=== PATIENT | female | born 1960 | race Caucasian/White ===

== ENCOUNTER → 2019-03-03 15:42 | Outpatient (BNVA) | payer MEDICARE, MEDICAID, SELFPAY | PROVIDERS: Visit Provider Anesthesiology | DX: M54.9 Dorsalgia, unspecified (principal); F17.210 Nicotine dependence, cigarettes, uncomplicated | CPT/HCPCS: 99213; 99214 ==

== ENCOUNTER → 2019-04-26 14:48 | Outpatient (BNVA) | payer MEDICARE, MEDICAID, SELFPAY | PROVIDERS: PCP Nurse Practitioner Family; Visit Provider Anesthesiology | DX: M54.5 Low back pain (principal); M79.604 Pain in right leg; M79.605 Pain in left leg; M48.02 Spinal stenosis, cervical region; M47.812 Spondylosis without myelopathy or radiculopathy, cervical region; E11.40 Type 2 diabetes mellitus with diabetic neuropathy, unspecified; R51 Headache; F17.210 Nicotine dependence, cigarettes, uncomplicated; Z79.891 Long term (current) use of opiate analgesic | CPT/HCPCS: 99214 ==

== ENCOUNTER 2019-06-01 07:18 | Outpatient (CLI) | payer MEDICARE, MEDICAID, SELFPAY ==
--- NOTE | 2019-06-01 | US_ITS ---
WS: [id number] RENAL ULTRASOUND REASON FOR EXAM: CKD TECHNIQUE: Grayscale and Doppler ultrasound examination of the kidneys. FINDINGS: Right kidney: Right kidney measures 12.4 cm x 5.7 cm x 4.9 cm. Cortex measured 1.76 cm. In the inferior pole of the right kidney is a stone measures 0.54 x 0.50 cm. An additional stone is a lso seen in the mid right kidney. Stone measures 0.43 cm. Left kidney: Left kidney measures 11.7 cm x 5.5 cm x 6.5 cm. The left kidney shows a hypodense lesion measures 2.16 x 1.81 x 1.68 cm consistent with a simple cyst. An additional cyst measures 1.64 x 1.3 4 x 1.54 cm. A text measured 1.58 cm. The aorta was normal. US/US renal BI* [id number] IMPRESSION: 1. 2 echogenic foci suggesting stones are seen in the right kidney. 2. 2 cysts are seen in the left kidney these appear to be benign.
--- NOTE | 2019-06-01 07:24 | USCV_ITS ---
Alaina Cano Age: 58 Gender: F : 1960 Exam Date: 06/01/2019 07:58 Ordering Phys: Diane Sylvester MD Technologist: Jessica Mccain Exam Location: [facility] – [place] Indication: Aneurysm HISTORY: History of. Abdominal aortic aneurysm. Diameter (cm) AP x Transverse x Length Velocity (cm/s) Waveform Prox Aorta: 2.24 x 2.57 x 48.90 Mid Aorta: 1.74 x 1.81 x 69.80 Distal Aorta: 3.45 x 3.41 x 4.75 74.60 Right Iliac Prox: 0.95 x x 186.80 Left Iliac Prox: 1.43 x x 63.60 Stent Prox Landing x x Aneurysmal Sac Max x x Lt Lat Sac Dim Rt Lat Sac Dim Stent Dist Landing x x Right Iliac Stent x x Left Iliac Stent x x Right Renal Art Left Renal Art FINDINGS: Comparison: 09-18-16. A fusiform abdominal aortic aneurysm is noted with a maximal diameter of 3.5 cm. Aneurysm extends over a length of 4.8 cm No interval change. Atherosclerotic plaque is noted in the abdominal aorta. Mild atherosclerosis iliac arteries. CONCLUSIONS No change in the AAA, maximum diameter of 3.[address] Светлана Berg DO (Electronically Signed) Final Date: 01 June 2019 10:05 S
== END 2019-06-01 07:19 | disposition home or self-care (01) ==
LOC: RAD 07:22
PROVIDERS: PCP Nurse Practitioner Family; Visit Provider Internal Medicine
DX: I71.4 Abdominal aortic aneurysm, without rupture (principal); N18.9 Chronic kidney disease, unspecified; N28.1 Cyst of kidney, acquired
CPT/HCPCS: 76706; 76770

== ENCOUNTER → 2019-06-29 12:31 | Outpatient (BNVA) | payer MEDICARE, MEDICAID, SELFPAY | PROVIDERS: PCP Nurse Practitioner Family; Visit Provider Nurse Practitioner | DX: M54.5 Low back pain (principal); M48.02 Spinal stenosis, cervical region; E11.40 Type 2 diabetes mellitus with diabetic neuropathy, unspecified; F17.210 Nicotine dependence, cigarettes, uncomplicated; Z79.891 Long term (current) use of opiate analgesic | CPT/HCPCS: 99213; 99214 ==

== ENCOUNTER → 2019-09-08 09:41 | Outpatient (BNVA) | payer MEDICARE, MEDICAID, SELFPAY | PROVIDERS: PCP Nurse Practitioner Family; Visit Provider Nurse Practitioner | DX: M54.41 Lumbago with sciatica, right side (principal); M54.42 Lumbago with sciatica, left side; M48.02 Spinal stenosis, cervical region; E11.40 Type 2 diabetes mellitus with diabetic neuropathy, unspecified; F17.210 Nicotine dependence, cigarettes, uncomplicated; Z79.891 Long term (current) use of opiate analgesic | CPT/HCPCS: 99213; 99214 ==

== ENCOUNTER 2019-09-26 12:46 | Outpatient (CLI) | payer MEDICARE, MEDICAID, SELFPAY ==
--- NOTE | 2019-09-26 13:33 | PFTS_ITS ---
Date of Study:09/26/19 Date of Dictation: MECHANICS: Forced vital capacity (FVC) is reduced. Forced expiratory volume in one second (FEV1) is reduced. FEV1/FVC is normal. FLOW VOLUME LOOP: Narrow. LUNG VOLUMES: Not performed DIFFUSING CAPACITY FOR CARBON MONOXIDE: Not performed INTERPRETATION: Spirometry is consistent with mild restriction. No significant postbronchodilator response. A significant improvement in FEF 25-75% following bronchodilator was noted, this could be suggestive of small airways disease, however, a nonspecific finding. MTDD
== END 2019-09-26 12:47 | disposition home or self-care (01) ==
LOC: RT 12:48
PROVIDERS: PCP Nurse Practitioner Family; Visit Provider Internal Medicine
DX: J44.9 Chronic obstructive pulmonary disease, unspecified (principal)
CPT/HCPCS: 94060; J7611

== ENCOUNTER 2019-09-26 13:50 | Outpatient (CLI) | payer MEDICARE, MEDICAID, SELFPAY ==
--- NOTE | 2019-09-26 13:51 | MM_ITS ---
WS: [id number] BILATERAL DIGITAL SCREENING MAMMOGRAPHY WITH CAD CLINICAL INFORMATION: SCREENING HISTORY: Screening mammogram. No current complaints. COMPARISON: April 05, 2015 TECHNIQUE: Bilateral CC and MLO views. FINDINGS: The breasts are composed of heterogeneous fibroglandular density tissue, which can limit the detectio n of small underlying mass lesions. No suspicious mass, asymmetry, calcifications, or architectural d istortion. No evidence of malignancy. MM/[place] [id number] IMPRESSION: BI-RADS: 2-Benign FOLLOW UP: 1 Year Follow-up Recommend return to annual screening mammography.
--- NOTE | 2019-09-26 14:22 | XR_ITS ---
WS: [id number] DEXA (DUAL ENERGY X-RAY ABSORPTIOMETRY) Bone mineral density was performed using a [employer] machine. HISTORY: STATUS, ASYMPTOMATIC POSTMENOPAUSAL COMPARISON: None available. Lumbar spine BMD (L1-L4): 1.210 g/cm2 T score: 0.3 Z score: 0.8 Total hip BMD: Left: 1.307 g/cm2. T score: 2.4 Z score: 2.8 Right: 1.312 g/cm2. T score: 2.4 Z score: 2.9 10 year probability of a major osteoporotic fracture is 5%. XR/XR DEXA axial skeleton* [id number] IMPRESSION: NORMAL BONE MINERAL DENSITY based upon the WHO classification for females.
== END 2019-09-26 13:51 | disposition home or self-care (01) ==
LOC: RADSHAW 13:50
PROVIDERS: PCP Nurse Practitioner Family; Visit Provider Internal Medicine
DX: Z12.31 Encounter for screening mammogram for malignant neoplasm of breast (principal); Z78.0 Asymptomatic menopausal state
CPT/HCPCS: 77067; 77080

== ENCOUNTER → 2019-11-08 13:41 | Outpatient (BNVA) | payer MEDICARE, MEDICAID, SELFPAY | PROVIDERS: PCP Nurse Practitioner Family; Visit Provider Nurse Practitioner | DX: M54.42 Lumbago with sciatica, left side (principal); M54.41 Lumbago with sciatica, right side; M48.02 Spinal stenosis, cervical region; E11.40 Type 2 diabetes mellitus with diabetic neuropathy, unspecified; G25.81 Restless legs syndrome; F17.210 Nicotine dependence, cigarettes, uncomplicated; Z79.891 Long term (current) use of opiate analgesic | CPT/HCPCS: 99213 ==

== ENCOUNTER → 2020-01-04 12:50 | Outpatient (BNVA) | payer MEDICARE, MEDICAID, SELFPAY | PROVIDERS: PCP Nurse Practitioner Family; Visit Provider Anesthesiology | DX: M54.5 Low back pain (principal); M48.02 Spinal stenosis, cervical region; M47.812 Spondylosis without myelopathy or radiculopathy, cervical region; G25.81 Restless legs syndrome; F17.210 Nicotine dependence, cigarettes, uncomplicated; Z79.891 Long term (current) use of opiate analgesic; Z71.6 Tobacco abuse counseling | CPT/HCPCS: 99214 ==

== ENCOUNTER 2020-01-05 12:56 | Outpatient (CLI) | payer MEDICARE, MEDICAID, SELFPAY ==
--- NOTE | 2020-01-05 13:08 | XR_ITS ---
WS: [id number] RIGHT WRIST: 3 VIEW(S) TECHNIQUE: PA, oblique and lateral. HISTORY: WRIST PAIN, RIGHT ulnar NEUROPATHY AT WRIST COMPARISON: None available. No acute fracture. There is a very small osseous or calcific density adjacent to the distal medial ulna. This is along t he dorsal surface of the distal ulna. No joint space abnormality. There is a small amount of adjacent soft tissue edema. XR/XR wrist RT min 3V* [id number] IMPRESSION: Tiny calcific or osseous density adjacent to the distal ulna with associated so ft tissue edema.
== END 2020-01-05 12:57 | disposition home or self-care (01) ==
LOC: RAD 13:01
PROVIDERS: PCP Nurse Practitioner Family; Visit Provider Nurse Practitioner Family
DX: M25.531 Pain in right wrist (principal); G56.21 Lesion of ulnar nerve, right upper limb; R60.0 Localized edema
CPT/HCPCS: 73110

== ENCOUNTER → 2020-02-13 08:57 | Outpatient (BNVA) | payer MEDICARE, MEDICAID, SELFPAY | PROVIDERS: PCP Nurse Practitioner Family; Referring Provider Nurse Practitioner Family; Visit Provider Specialist | DX: R20.0 Anesthesia of skin; F17.210 Nicotine dependence, cigarettes, uncomplicated; G56.21 Lesion of ulnar nerve, right upper limb; R20.2 Paresthesia of skin; M25.531 Pain in right wrist | CPT/HCPCS: 95908 ==

== ENCOUNTER → 2020-03-08 10:15 | Outpatient (BNVA) | payer MEDICARE, MEDICAID, SELFPAY | PROVIDERS: PCP Nurse Practitioner Family; Visit Provider Nurse Practitioner | DX: M54.5 Low back pain (principal); M48.02 Spinal stenosis, cervical region; M47.812 Spondylosis without myelopathy or radiculopathy, cervical region; E11.40 Type 2 diabetes mellitus with diabetic neuropathy, unspecified; G25.81 Restless legs syndrome; F17.210 Nicotine dependence, cigarettes, uncomplicated; Z79.891 Long term (current) use of opiate analgesic; Z71.6 Tobacco abuse counseling | CPT/HCPCS: 99214 ==

== ENCOUNTER → 2020-03-19 11:32 | Outpatient (BNVA) | payer MEDICARE, MEDICAID, SELFPAY | PROVIDERS: PCP Nurse Practitioner Family; Visit Provider Specialist | DX: R20.0 Anesthesia of skin (principal); M48.02 Spinal stenosis, cervical region; F17.210 Nicotine dependence, cigarettes, uncomplicated | CPT/HCPCS: 95908 ==

== ENCOUNTER 2020-04-05 12:46 | Outpatient (CLI) | payer MEDICARE, MEDICAID, SELFPAY ==
--- NOTE | 2020-04-05 12:57 | XR_ITS ---
WS: [id number] CERVICAL SPINE TECHNIQUE: 3 views of the cervical spine CLINICAL INFORMATION: CERVICALGIA COMPARISON: None. FINDINGS: Straightening of the normal cervical lordosis. Normal C1-C2 articulation. Slight anterolisthesis C3 o n C4 measuring 3 mm. Normal C1-2 articulation. XR/XR cervical spine 3V* [id number] IMPRESSION: 1. Straightening of the normal cervical lordosis with slight anterolisthesis C 3 on C4. 2. Mild spondylitic changes.
== END 2020-04-05 12:47 | disposition home or self-care (01) ==
LOC: RADWPI 12:51
PROVIDERS: PCP Nurse Practitioner Family; Visit Provider Nurse Practitioner Family
DX: M54.2 Cervicalgia (principal)
CPT/HCPCS: 72040

== ENCOUNTER → 2020-04-30 08:18 | Outpatient (BNVA) | payer MEDICARE, MEDICAID, SELFPAY | PROVIDERS: PCP Nurse Practitioner Family; Referring Provider Family Medicine; Visit Provider Internal Medicine | DX: E03.9 Hypothyroidism, unspecified (principal); E11.65 Type 2 diabetes mellitus with hyperglycemia; E78.1 Pure hyperglyceridemia | CPT/HCPCS: 99205 ==

== ENCOUNTER → 2020-05-09 10:36 | Outpatient (BNVA) | payer MEDICARE, MEDICAID, SELFPAY | PROVIDERS: PCP Nurse Practitioner Family; Visit Provider Anesthesiology | DX: G89.29 Other chronic pain (principal); M54.5 Low back pain; M48.02 Spinal stenosis, cervical region; M47.812 Spondylosis without myelopathy or radiculopathy, cervical region; G25.81 Restless legs syndrome; F17.210 Nicotine dependence, cigarettes, uncomplicated; Z79.891 Long term (current) use of opiate analgesic | CPT/HCPCS: 99214 ==

== ENCOUNTER → 2020-05-28 09:58 | Outpatient (BNVA) | payer MEDICARE, MEDICAID, SELFPAY | PROVIDERS: PCP Nurse Practitioner Family; Visit Provider Internal Medicine | DX: E03.9 Hypothyroidism, unspecified (principal); E11.65 Type 2 diabetes mellitus with hyperglycemia; E78.1 Pure hyperglyceridemia; E78.5 Hyperlipidemia, unspecified | CPT/HCPCS: 99213 ==

== ENCOUNTER → 2020-07-05 13:24 | Outpatient (BNVA) | payer MEDICARE, MEDICAID, SELFPAY | PROVIDERS: PCP Nurse Practitioner Family; Visit Provider Nurse Practitioner | DX: M54.5 Low back pain (principal); M48.02 Spinal stenosis, cervical region; M47.812 Spondylosis without myelopathy or radiculopathy, cervical region; G25.81 Restless legs syndrome; E11.40 Type 2 diabetes mellitus with diabetic neuropathy, unspecified; R20.0 Anesthesia of skin; F17.210 Nicotine dependence, cigarettes, uncomplicated; Z79.891 Long term (current) use of opiate analgesic; Z71.6 Tobacco abuse counseling | CPT/HCPCS: 99213; 99214 ==

== ENCOUNTER → 2020-09-12 12:45 | Outpatient (BNVA) | payer MEDICARE, MEDICAID, SELFPAY | PROVIDERS: PCP Nurse Practitioner Family; Visit Provider Anesthesiology | DX: G89.29 Other chronic pain (principal); M54.41 Lumbago with sciatica, right side; M54.42 Lumbago with sciatica, left side; M47.812 Spondylosis without myelopathy or radiculopathy, cervical region; M48.02 Spinal stenosis, cervical region; G25.81 Restless legs syndrome; E11.40 Type 2 diabetes mellitus with diabetic neuropathy, unspecified; F17.210 Nicotine dependence, cigarettes, uncomplicated; Z79.891 Long term (current) use of opiate analgesic; Z71.6 Tobacco abuse counseling | CPT/HCPCS: 99214 ==

== ENCOUNTER → 2020-09-17 11:54 | Outpatient (BNVA) | payer MEDICARE, MEDICAID, SELFPAY | PROVIDERS: PCP Nurse Practitioner Family; Referring Provider Nurse Practitioner Family; Visit Provider Specialist | DX: E11.40 Type 2 diabetes mellitus with diabetic neuropathy, unspecified (principal); Z79.4 Long term (current) use of insulin; G95.9 Disease of spinal cord, unspecified; M54.12 Radiculopathy, cervical region; M51.9 Unspecified thoracic, thoracolumbar and lumbosacral intervertebral disc disorder; F17.210 Nicotine dependence, cigarettes, uncomplicated | CPT/HCPCS: 99204 ==

== ENCOUNTER 2020-10-04 15:05 | Outpatient (CLI) | payer MEDICARE, MEDICAID, SELFPAY ==
--- NOTE | 2020-10-04 15:09 | US_ITS ---
WS: [id number] RENAL ULTRASOUND HISTORY: STAGE 3 CHRONIC KIDNEY DZ COMPARISON: 06/01/2019 TECHNIQUE: 2-D and color Doppler imaging of the kidney submitted. Right kidney: 12.5 cm x 6.5 cm x 5.6 cm. Normal echogenicity with no hydronephrosis or mass. Left kidney: 11.8 cm x 5.1 cm x 5.6 cm. Normal echogenicity with no hydronephrosis or mass. LEFT renal cyst described on the prior study is n o longer identified. Aorta: Mild aneurysmal dilatation to 3.6 cm of the aorta. Similar diameter as compared to 12/09/2015. Urinary Bladder: Normal distention. US/US renal BI* [id number] IMPRESSION: 1. No renal obstruction or mass. 2. Previously described LEFT renal cyst is not identified today. 3. Stable abdominal aortic aneurysm at 3.6 cm.
== END 2020-10-04 15:06 | disposition home or self-care (01) ==
LOC: US 15:07
PROVIDERS: PCP Nurse Practitioner Family; Visit Provider Internal Medicine Nephrology
DX: N18.32 Chronic kidney disease, stage 3b (principal); I71.4 Abdominal aortic aneurysm, without rupture
CPT/HCPCS: 76770

== ENCOUNTER → 2020-11-07 12:18 | Outpatient (BNVA) | payer MEDICARE, MEDICAID, SELFPAY | PROVIDERS: PCP Nurse Practitioner Family; Visit Provider Specialist | DX: E11.40 Type 2 diabetes mellitus with diabetic neuropathy, unspecified (principal); Z79.4 Long term (current) use of insulin; G95.9 Disease of spinal cord, unspecified; M54.12 Radiculopathy, cervical region; M51.9 Unspecified thoracic, thoracolumbar and lumbosacral intervertebral disc disorder; F17.210 Nicotine dependence, cigarettes, uncomplicated | CPT/HCPCS: 99214 ==

== ENCOUNTER → 2020-11-12 09:18 | Outpatient (BNVA) | payer MEDICARE, MEDICAID, SELFPAY | PROVIDERS: PCP Nurse Practitioner Family; Visit Provider Anesthesiology | DX: G89.29 Other chronic pain (principal); M54.5 Low back pain; M48.02 Spinal stenosis, cervical region; M47.812 Spondylosis without myelopathy or radiculopathy, cervical region; M54.12 Radiculopathy, cervical region; E11.40 Type 2 diabetes mellitus with diabetic neuropathy, unspecified; G25.81 Restless legs syndrome; G95.9 Disease of spinal cord, unspecified; F17.210 Nicotine dependence, cigarettes, uncomplicated; Z79.891 Long term (current) use of opiate analgesic | CPT/HCPCS: 99214 ==

== ENCOUNTER → 2021-01-07 13:20 | Outpatient (BNVA) | payer MEDICARE, MEDICAID, SELFPAY | PROVIDERS: PCP Nurse Practitioner Family; Visit Provider Anesthesiology | DX: G89.29 Other chronic pain (principal); M48.02 Spinal stenosis, cervical region; M54.12 Radiculopathy, cervical region; M47.812 Spondylosis without myelopathy or radiculopathy, cervical region; G95.9 Disease of spinal cord, unspecified; M51.9 Unspecified thoracic, thoracolumbar and lumbosacral intervertebral disc disorder; E11.40 Type 2 diabetes mellitus with diabetic neuropathy, unspecified; G25.81 Restless legs syndrome; F17.210 Nicotine dependence, cigarettes, uncomplicated; Z79.891 Long term (current) use of opiate analgesic | CPT/HCPCS: 99214 ==

== ENCOUNTER → 2021-02-23 11:55 | Outpatient (BNVA) | payer MEDICARE, MEDICAID, SELFPAY | PROVIDERS: PCP Nurse Practitioner Family; Visit Provider Family Medicine | DX: M79.672 Pain in left foot (principal) | CPT/HCPCS: 73630 ==

== ENCOUNTER → 2021-03-04 08:50 | Outpatient (BNVA) | payer MEDICARE, MEDICAID, SELFPAY | PROVIDERS: PCP Nurse Practitioner Family; Visit Provider Internal Medicine | DX: E11.65 Type 2 diabetes mellitus with hyperglycemia (principal); E78.5 Hyperlipidemia, unspecified; E78.1 Pure hyperglyceridemia; E03.9 Hypothyroidism, unspecified; F17.210 Nicotine dependence, cigarettes, uncomplicated; Z79.4 Long term (current) use of insulin; Z79.84 Long term (current) use of oral hypoglycemic drugs | CPT/HCPCS: 99214 ==

== ENCOUNTER → 2021-03-25 09:10 | Outpatient (BNVA) | payer MEDICARE, MEDICAID, SELFPAY | PROVIDERS: PCP Family Medicine; Visit Provider Anesthesiology | DX: M47.812 Spondylosis without myelopathy or radiculopathy, cervical region (principal); M48.02 Spinal stenosis, cervical region; M54.12 Radiculopathy, cervical region; M51.9 Unspecified thoracic, thoracolumbar and lumbosacral intervertebral disc disorder; G95.9 Disease of spinal cord, unspecified; E11.40 Type 2 diabetes mellitus with diabetic neuropathy, unspecified; M79.672 Pain in left foot; F17.200 Nicotine dependence, unspecified, uncomplicated; Z79.891 Long term (current) use of opiate analgesic; Z79.4 Long term (current) use of insulin | CPT/HCPCS: 99214 ==

== ENCOUNTER → 2021-04-17 14:04 | Outpatient (BNVA) | payer MEDICAID, SELFPAY | PROVIDERS: PCP Family Medicine; Referring Provider Family Medicine; Visit Provider Podiatrist Foot & Ankle Surgery | DX: M79.672 Pain in left foot (principal); M77.32 Calcaneal spur, left foot | CPT/HCPCS: 73630 ==

== ENCOUNTER 2021-06-06 08:04 | Outpatient (CLI) | payer MEDICARE, MEDICAID, SELFPAY ==
--- NOTE | 2021-06-06 08:51 | US_ITS ---
WS: [id number] ULTRASOUND ABDOMEN LIMITED CLINICAL INFORMATION: ABD PAIN COMPARISON: Ultrasound October 04, 2020 FINDINGS: Liver Size: Hepatomegaly Craniocaudal length: 23.2 cm. Echogenicity: Coarse and echogenic Surface nodularity: None. Mass (size and location): None. Bile ducts Intrahepatic ducts: Normal. Common bile duct diameter: 0.5 cm. Gallbladder Normal. Gallstones: None. Gallbladder sludge: None. Gallbladder wall thickening: None. Pericholecystic fluid: None. Sonographic Cook sign: Absent. Pancreas Not well seen due to bowel gas Right kidney: Normal. Hydronephrosis: None. Size: 12.9 cm x 7.2 cm x 5.7 cm. Abdominal aorta and IVC Mid abdominal aortic aneurysm measuring 3.4 x 3.6 x 5.6 cm AP X transverse x CC. Ascites: None. US/US gall bladder [id number] IMPRESSION: 1. Hepatomegaly with diffuse fatty infiltration. 2. Normal gallbladder. No cholelithiasis. 3. No hydronephrosis in RIGHT kidney. 4. Pancreas not well visualized due to bowel gas. 5. Normal common bile duct. 6. Mid abdominal aortic aneurysm measuring 3.4 x 3.6 x 5.6 cm AP x transverse x CC. Recommend further evaluation CTA abdomen pelvis. This [place] [facility] [place] the ultrasound October 04, 2020.
== END 2021-06-06 08:05 | disposition home or self-care (01) ==
PROVIDERS: PCP Family Medicine; Visit Provider Nurse Practitioner Family
DX: R10.13 Epigastric pain (principal); R11.10 Vomiting, unspecified; R16.0 Hepatomegaly, not elsewhere classified; K76.0 Fatty (change of) liver, not elsewhere classified; I71.4 Abdominal aortic aneurysm, without rupture
CPT/HCPCS: 76705

== ENCOUNTER → 2021-06-13 08:14 | Outpatient (BNVA) | payer MEDICARE, MEDICAID, SELFPAY | PROVIDERS: PCP Family Medicine; Visit Provider Internal Medicine | DX: E11.40 Type 2 diabetes mellitus with diabetic neuropathy, unspecified (principal); E11.65 Type 2 diabetes mellitus with hyperglycemia; E78.1 Pure hyperglyceridemia; E78.5 Hyperlipidemia, unspecified; R11.0 Nausea; E03.9 Hypothyroidism, unspecified; F17.210 Nicotine dependence, cigarettes, uncomplicated; Z79.4 Long term (current) use of insulin; Z79.84 Long term (current) use of oral hypoglycemic drugs | CPT/HCPCS: 99214 ==

== ENCOUNTER 2021-07-03 09:21 | Outpatient (CLI) | payer MEDICARE, MEDICAID, SELFPAY ==
--- NOTE | 2021-07-03 09:33 | CT_ITS ---
WS: [id number] CT ANGIOGRAPHY ABDOMEN AORTA HISTORY: AAA W/O RUPTURE TECHNIQUE: CT angiogram is performed during IV injection. Reformation images reviewed. All CT scans a [facility] use at least one of these dose optimization techniques: automated exposure contro l; mA and/or kV adjustment per patient size (includes targeted exams where dose is matched to clinica l indication); or iterative reconstruction. CONTRAST: Omnipaque 350; 95 mL IV. DLP: 933.78 mGy.cm COMPARISON: 12/09/2015 Hyperinflated lungs from emphysema. Stable linear scar at the RIGHT middle lobe. Mild dependent walsh es at the lung bases. Heart is normal size. Small hiatal hernia. Abdominal aorta: Moderate atherosclerotic changes throughout the abdominal aorta. Progressive aneurys mal dilatation to 4.2 cm of the infrarenal aorta. Aneurysm extends over a length of 5.5 cm. There is a large amount of intraluminal thrombus. The amount of thrombus in the aneurysmal dilatation has incr eased since the prior study. The lumen is eccentric to the RIGHT. Focal protrusions of contrast from ulcerations extend into the thrombus. There is no rupture. Celiac axis and SMA are both patent. There is plaque at the origins of both arteries. Mild atherosclerotic plaque involving the origin of the r enal arteries. Iliac arteries are patent. There is mixed calcified plaque and intimal thickening. Liver is markedly enlarged with diffuse low attenuation from hepatic steatosis. On this early arteria l phase no enhancing lesions are identified. Gallbladder is contracted. Spleen is normal size. Pancre as is normal. Mild hyperplasia of each adrenal gland. Slightly greater lobulation and enlargement of the LEFT adrenal. Normally enhancing kidneys. Low-attenuation nodule from the upper pole LEFT kidney measures 15 x 16 m m. This has slightly increased in size since the prior study. Hounsfield units are low suggesting thi s is a cyst. No ascites or adenopathy. No GI tract obstruction. Numerous diverticula in the distal co fay. The appendix is not definitely identified. Moderately well distended urinary bladder. Uterus is not identified. No adnexal mass. No destructive bone lesions. CT/CT angio abdomen [id number] IMPRESSION: 1. Mild increase in size of the infrarenal abdominal aortic aneurysm with a ma ximal diameter now of 4.2 cm. Increasing amount of thrombus and eccentric paten t lumen. 2. Severe hepatomegaly and hepatic steatosis. 3. Mildly contracted gallbladder. 4. No ascites or adenopathy. 5. Mild adrenal hyperplasia, LEFT greater than RIGHT. 6. LEFT upper pole renal cyst. 7. Moderate atherosclerotic changes continue into the iliac arteries.
[2021-07-03] MEDS: iohexol 350 mg/mL 100 mL Btl IV (09:51)
== END 2021-07-03 09:22 | disposition home or self-care (01) ==
LOC: RAD 09:24
PROVIDERS: PCP Family Medicine; Visit Provider Nurse Practitioner Family
DX: I71.4 Abdominal aortic aneurysm, without rupture (principal); R16.0 Hepatomegaly, not elsewhere classified; K76.0 Fatty (change of) liver, not elsewhere classified; E27.8 Other specified disorders of adrenal gland; N28.1 Cyst of kidney, acquired
CPT/HCPCS: 74175

== ENCOUNTER → 2021-07-10 10:54 | Outpatient (BNVA) | payer MEDICARE, MEDICAID, SELFPAY | PROVIDERS: PCP Family Medicine; Visit Provider Thoracic Surgery (Cardiothoracic Vascular Surgery) | DX: I71.4 Abdominal aortic aneurysm, without rupture (principal); F17.210 Nicotine dependence, cigarettes, uncomplicated | CPT/HCPCS: 99203 ==

== ENCOUNTER 2021-08-28 10:16 | Outpatient (CLI) | payer MEDICARE, MEDICAID, SELFPAY ==
--- NOTE | 2021-08-28 10:36 | MM_ITS ---
WS: [id number] BILATERAL 3D TOMOSYNTHESIS DIGITAL SCREENING MAMMOGRAPHY WITH CAD CLINICAL INFORMATION: SCREENING HISTORY: Screening mammogram. No current complaints. COMPARISON: September 26, 2019 and 2015. TECHNIQUE: Bilateral CC and MLO views. FINDINGS: Scattered fibroglandular densities bilaterally. Increasing lobulated ovoid nodule subareolar LEFT sadie ast measuring 10 mm. Recommend spot compression views and ultrasound in further evaluation. RIGHT breast is unremarkable and unchanged. MM/[place] [id number] IMPRESSION: BI-RADS: 0-Incomplete: Need additional imaging evaluation FOLLOW UP: Need Additional Imaging Recommend LEFT breast diagnostic mammography with spot compression views and ul trasound.
== END 2021-08-28 10:17 | disposition home or self-care (01) ==
LOC: RADSHAW 10:18
PROVIDERS: PCP Family Medicine; Visit Provider Family Medicine
DX: Z12.31 Encounter for screening mammogram for malignant neoplasm of breast (principal); N63.42 Unspecified lump in left breast, subareolar
CPT/HCPCS: 77063; 77067

== ENCOUNTER → 2021-09-16 08:58 | Outpatient (BNVA) | payer MEDICARE, MEDICAID, SELFPAY | PROVIDERS: PCP Family Medicine; Visit Provider Internal Medicine | DX: E11.65 Type 2 diabetes mellitus with hyperglycemia (principal); E11.40 Type 2 diabetes mellitus with diabetic neuropathy, unspecified; E78.1 Pure hyperglyceridemia; E03.9 Hypothyroidism, unspecified; E78.5 Hyperlipidemia, unspecified; K76.0 Fatty (change of) liver, not elsewhere classified; Z79.84 Long term (current) use of oral hypoglycemic drugs; Z79.4 Long term (current) use of insulin; F17.210 Nicotine dependence, cigarettes, uncomplicated | CPT/HCPCS: 80053; 80061; 83036; 83721; 84439; 84443; 99214 ==

== ENCOUNTER → 2021-09-25 13:01 | Outpatient (BNVA) | payer MEDICARE, MEDICAID, SELFPAY | PROVIDERS: PCP Family Medicine; Visit Provider Podiatrist Foot & Ankle Surgery | DX: M79.672 Pain in left foot (principal); M21.40 Flat foot [pes planus] (acquired), unspecified foot; M21.621 Bunionette of right foot; M21.622 Bunionette of left foot; M21.611 Bunion of right foot; M21.612 Bunion of left foot; E11.40 Type 2 diabetes mellitus with diabetic neuropathy, unspecified | CPT/HCPCS: 99213; 99214 ==

== ENCOUNTER 2021-10-07 08:34 | Outpatient (CLI) | payer MEDICARE, MEDICAID, SELFPAY ==
--- NOTE | 2021-10-07 08:44 | MM_ITS ---
WS: [id number] LEFT 3D TOMOSYNTHESIS DIGITAL MAMMOGRAPHY WITH CAD CLINICAL INFORMATION: LT ABNORMAL MAMMOGRAM COMPARISON: October 07, 2021 TECHNIQUE: 3 views of the left breast were obtained. FINDINGS: Scattered fibroglandular densities of the left breast. Stable ovoid nodule subareolar LEFT breast preston suring 10 mm. Ultrasound described below. ULTRASOUND BREAST LEFT TECHNIQUE: Ultrasound left breast focused area of concern. CLINICAL INFORMATION: LT ABNORMAL MAMMOGRAM COMPARISON: None. FINDINGS: Ultrasound LEFT breast at the nipple. Several dilated ducts are visualized consistent with ductal ect breezy. No intraductal lesions. Adjacent lobulated cluster of microcysts measuring 11 x 11 x 5 mm likel y corresponds to the mammography findings at the 3:00 position.. Recommend 6 month follow-up to confi rm stability. MM/MM tomosynthesis [place] [id number] IMPRESSION: BI-RADS: 3-Probably Benign FOLLOW UP: 6 Month Follow-up Recommend 6 month follow-up LEFT diagnostic mammography and ultrasound to confi rm stability.
== END 2021-10-07 08:35 | disposition home or self-care (01) ==
PROVIDERS: PCP Family Medicine; Visit Provider Family Medicine
DX: R92.8 Other abnormal and inconclusive findings on diagnostic imaging of breast (principal)
CPT/HCPCS: 76642; 77061

== ENCOUNTER 2021-11-20 08:55 | Outpatient (CLI) | payer MEDICARE, MEDICAID, SELFPAY ==
[2021-11-20 10:14] LABS: Basophils # 0.2 10^3/uL (0.0-0.1); Basophils % 1.2 %; Eosinophils # 0.5 10^3/uL (0.0-0.8); Eosinophils % 3.9 %; Hemoglobin 12.9 g/dL (11.5-15.3); Lymphocytes # 2.2 10^3/uL (0.8-4.8); Mean Corpuscular Hemoglobin 25.1 pg (28.0-34.0); Mean Corpuscular Volume 83.8 fl (81-99); Mean Platelet Volume 10.2 fL (7.4-10.4); Monocytes # 1.1 10^3/uL (0.2-0.9); Monocytes % 7.9 %; Neutrophils # 9.68 10^3/uL (1.8-7.7); Nucleated Red Blood Cells % 0 %; Platelet Count 537 10^3/cmm (130-400); Red Blood Count 5.13 10^6/uL (4.1-5.3); Red Cell Distribution Width 16.6 % (12.1-15.1)
[2021-11-20 10:48] LABS: Albumin Level 4.3 g/dL (3.5-5.2); Blood Urea Nitrogen 19 mg/dL (8-23); Calcium 8.3 mg/dL (8.5-10.5); Carbon Dioxide 20 mmol/L (22-29); Chloride 101 mmol/L (98-107); Glomerular Filtration Rate 63.9 mL/min (90-130); Glucose 294 mg/dL (65-115); Phosphorus 3.8 mg/dL (2.5-4.5); Sodium 138 mmol/L (136-145)
[2021-11-20 10:49] LABS: Calcium 8.8 mg/dL (8.5-10.5)
[2021-11-20 10:50] LABS: Parathyroid Hormone 51.8 pg/mL (15-65)
== END 2021-11-20 08:56 | disposition home or self-care (01) ==
LOC: LAB 09:02
PROVIDERS: PCP Family Medicine; Visit Provider Internal Medicine Nephrology
DX: N18.32 Chronic kidney disease, stage 3b (principal)
CPT/HCPCS: 36415; 80069; 82310; 83970; 85025

== ENCOUNTER → 2021-12-23 15:42 | Outpatient (BNVA) | payer MEDICARE, MEDICAID, SELFPAY | PROVIDERS: PCP Family Medicine; Visit Provider Podiatrist Foot & Ankle Surgery | DX: M21.42 Flat foot [pes planus] (acquired), left foot (principal); M21.621 Bunionette of right foot; M21.622 Bunionette of left foot; M21.611 Bunion of right foot; M21.612 Bunion of left foot; E11.40 Type 2 diabetes mellitus with diabetic neuropathy, unspecified | CPT/HCPCS: 20600; 99214; J1100 ==

== ENCOUNTER 2022-02-10 07:03 | Outpatient (CLI) | payer MEDICARE, MEDICAID, SELFPAY ==
--- NOTE | 2022-02-10 07:15 | USCV_ITS ---
Alaina Cano Age: 61 Gender: F : 1960 Exam Date: 02/10/2022 07:14 Ordering Phys: Dominguez Jo MD (Andy) ([email or web address]) Technologist: Vasu Mcginnis Exam Location: [facility] [place]ication: AAA HISTORY: Diameter (cm) AP x Transverse x Length Velocity (cm/s) Waveform Prox Aorta: 2.74 x 2.95 x 46.20 Mid Aorta: 2.03 x 2.36 x 53.70 Distal Aorta: 3.72 x 4.02 x 5.64 95.90 Right Iliac Prox: 1.53 x 1.09 x 97.50 Left Iliac Prox: 0.99 x 0.97 x 201.00 Stent Prox Landing x x Aneurysmal Sac Max x x Lt Lat Sac Dim Rt Lat Sac Dim Stent Dist Landing x x Right Iliac Stent x x Left Iliac Stent x x Right Renal Art Left Renal Art FINDINGS: Comparison:. 06/01/19 A fusiform abdominal aortic aneurysm is noted with a maximal diameter of 4.0 cm. Increase in size since the prior exam from 3.5 cm. There are no findings to suggest rupture of the abdominal aortic aneurysm. Atherosclerotic plaque is noted in the abdominal aorta. There is evidence of atherosclerotic plaque no significan stenosis in the right common iliac artery. There is evidence of atherosclerotic plaque no significan stenosis in the left common iliac artery. CONCLUSIONS Mild increase in size of the AAA since 2019. Increase in diameter from 3.5 cm to 4.[address] Светлана Berg DO (Electronically Signed) Final Date: 10 February 2022 08:04 S
== END 2022-02-10 07:04 | disposition home or self-care (01) ==
PROVIDERS: PCP Family Medicine; Visit Provider Thoracic Surgery (Cardiothoracic Vascular Surgery)
DX: I71.40 Abdominal aortic aneurysm, without rupture, unspecified (principal)
CPT/HCPCS: 93978

== ENCOUNTER 2022-02-12 09:15 | Outpatient (CLI) | payer MEDICARE, MEDICAID, SELFPAY ==
[2022-02-12 10:19] LABS: Estmated Average Glucose 229; Hemoglobin A1C 9.6 % (4.0-6.0)
[2022-02-12 10:47] LABS: Chol HDL Ratio 8.44 mg/dL (0.0-4.40); Cholesterol 152 mg/dL (0-200); Free T4 Free Thyroxine 1.11 ng/dL (0.82-1.77); HDL Cholesterol 18 mg/dL (60-100); Thyroid Stimulating Hormone 3.56 uIU/mL (0.27-4.20); Triglycerides 602 mg/dL (0-150)
[2022-02-12 10:59] LABS: LDL Cholesterol Direct 57 mg/dL (0-100)
== END 2022-02-12 09:16 | disposition home or self-care (01) ==
LOC: LAB 09:18
PROVIDERS: PCP Family Medicine; Visit Provider Internal Medicine
DX: E03.9 Hypothyroidism, unspecified (principal); E11.65 Type 2 diabetes mellitus with hyperglycemia; E78.1 Pure hyperglyceridemia; E78.5 Hyperlipidemia, unspecified
CPT/HCPCS: 80061; 83036; 83721; 84439; 84443

== ENCOUNTER → 2022-02-17 11:01 | Outpatient (BNVA) | payer MEDICARE, MEDICAID, SELFPAY | PROVIDERS: PCP Family Medicine; Visit Provider Internal Medicine | DX: E11.65 Type 2 diabetes mellitus with hyperglycemia (principal); E11.42 Type 2 diabetes mellitus with diabetic polyneuropathy; E11.40 Type 2 diabetes mellitus with diabetic neuropathy, unspecified; E78.1 Pure hyperglyceridemia; K76.0 Fatty (change of) liver, not elsewhere classified; Z79.4 Long term (current) use of insulin; F17.210 Nicotine dependence, cigarettes, uncomplicated | CPT/HCPCS: 99214 ==

== ENCOUNTER → 2022-03-05 14:48 | Outpatient (BNVA) | payer MEDICARE, MEDICAID, SELFPAY | PROVIDERS: PCP Family Medicine; Visit Provider Thoracic Surgery (Cardiothoracic Vascular Surgery) | DX: I71.40 Abdominal aortic aneurysm, without rupture, unspecified (principal); F17.210 Nicotine dependence, cigarettes, uncomplicated | CPT/HCPCS: 99213 ==

== ENCOUNTER → 2022-03-12 09:51 | Outpatient (BNVA) | payer MEDICARE, MEDICAID, SELFPAY | PROVIDERS: PCP Family Medicine; Visit Provider Family Medicine | DX: R93.7 Abnormal findings on diagnostic imaging of other parts of musculoskeletal system (principal); R11.0 Nausea; Z11.4 Encounter for screening for human immunodeficiency virus [HIV]; Z12.2 Encounter for screening for malignant neoplasm of respiratory organs; Z71.6 Tobacco abuse counseling; Z78.0 Asymptomatic menopausal state; Z11.59 Encounter for screening for other viral diseases; Z13.820 Encounter for screening for osteoporosis; F17.219 Nicotine dependence, cigarettes, with unspecified nicotine-induced disorders | CPT/HCPCS: 80074; 87806 ==

== ENCOUNTER → 2022-03-31 13:11 | Outpatient (BNVA) | payer MEDICARE, MEDICAID, SELFPAY | PROVIDERS: PCP Family Medicine; Visit Provider Podiatrist Foot & Ankle Surgery | DX: M21.621 Bunionette of right foot (principal); M21.622 Bunionette of left foot; M21.40 Flat foot [pes planus] (acquired), unspecified foot; M21.611 Bunion of right foot; M21.612 Bunion of left foot; E11.40 Type 2 diabetes mellitus with diabetic neuropathy, unspecified; M19.079 Primary osteoarthritis, unspecified ankle and foot; Z79.4 Long term (current) use of insulin | CPT/HCPCS: 99214 ==

== ENCOUNTER 2022-04-23 07:04 | Outpatient (CLI) | payer MEDICARE, MEDICAID, SELFPAY ==
--- NOTE | 2022-04-23 07:00 | CT_ITS ---
WS: [id number] LDCT LUNG CANCER SCREENING HISTORY: lung cancer screening TECHNIQUE: Axial imaging performed from the apices to 1 cm below the costophrenic angles. Coronal and sagittal reformats are submitted with axial MIP series. All CT scans at [facility] use at least one of these dose optimization techniques: automated exposure control; mA and/or kV adjustment per patient size (includes targeted exams where dose is matched to clinical indication); or iterativ e reconstruction. DLP: 77.67 mGy.cm DIvol: Mean CTDIvol: 1.60 (mGy) COMPARISON: 01/08/2016 Diagnostic quality: Satisfactory Lung Nodules: New LEFT upper lobe noncalcified 5 mm nodule noted. No additional masses or nodules are identified. Lungs: Paraseptal emphysema. Reticular thickening noted bilaterally. There is pleural thickening philip g the fissures. Linear area of scarring in the RIGHT middle lobe. Heart: Normal size. Other findings: Mild atherosclerosis aorta. Pulmonary artery is dilated to 3.8 cm. A few scattered co ronary artery calcifications. Small hiatal hernia. CT/CT lung screening [id number] IMPRESSION: LUNG-RADS: 3-Probably Benign FOLLOW UP: 6 Month LDCT OTHER FINDINGS (S MODIFIER): None.
== END 2022-04-23 07:05 | disposition home or self-care (01) ==
LOC: RAD 07:05
PROVIDERS: PCP Family Medicine; Visit Provider Family Medicine
DX: Z12.2 Encounter for screening for malignant neoplasm of respiratory organs (principal); F17.219 Nicotine dependence, cigarettes, with unspecified nicotine-induced disorders
CPT/HCPCS: 71271

== ENCOUNTER 2022-05-07 10:01 | Outpatient (CLI) | payer MEDICARE, MEDICAID, SELFPAY ==
--- NOTE | 2022-05-07 10:07 | MM_ITS ---
WS: [id number] LEFT 3D TOMOSYNTHESIS DIGITAL MAMMOGRAPHY WITH CAD CLINICAL INFORMATION: 6MFU HISTORY: Six-month follow-up COMPARISON: 2021 TECHNIQUE: 3 views of the left breast were obtained. FINDINGS: Scattered fibroglandular densities of the left breast. Stable 10 mm ovoid nodule subareolar LEFT luanne st. No new parenchymal abnormalities. Ultrasound described below. ULTRASOUND BREAST LEFT TECHNIQUE: Ultrasound left breast focused area of concern. CLINICAL INFORMATION: 6MFU FINDINGS: Ultrasound LEFT breast near the areola at the 3:00 position. Hypoechoic lobulated lesion with interna l septations is again visualized. This appears to represent a cluster of microcysts similar in appea rimma to the prior examination. Today this measures 8.2 x 12.9 x 5.3 mm not significantly changed. St able prominent ducts posterior to the nipple. No intraductal lesions in this area. Recommend addition al six-month follow-up to confirm at least one-year stability. MM/[place] [id number] IMPRESSION: BI-RADS: 3-Probably Benign FOLLOW UP: 6 Month Follow-up Recommendation LEFT breast diagnostic mammography and ultrasound in 6 months.
== END 2022-05-07 10:02 | disposition home or self-care (01) ==
LOC: RAD 10:01
PROVIDERS: PCP Family Medicine; Visit Provider Family Medicine
DX: R92.8 Other abnormal and inconclusive findings on diagnostic imaging of breast (principal)
CPT/HCPCS: 76642; 77061; G0279

== ENCOUNTER 2022-05-18 07:25 | Outpatient (CLI) | payer MEDICARE, MEDICAID, SELFPAY ==
[2022-05-18 08:11] LABS: Creatinine Urine, Random 28 mg/dL (28-217); Microalbum Creatinine Ratio Ur 36 mg/dL (0-20); Microalbumin Random Urine 1 ug/dL (0-20)
[2022-05-18 08:21] LABS: Alanine Aminotransferase 19 U/L (0-33); Albumin Level 4.3 g/dL (3.5-5.2); Alkaline Phosphatase 72 U/L (35-105); Anion Gap 16.9 (5-19); Aspartate Amino Transferase 18 U/L (0-32); Blood Urea Nitrogen 16 mg/dL (8-23); Carbon Dioxide 23 mmol/L (22-29); Chloride 103 mmol/L (98-107); Chol HDL Ratio 7.76 mg/dL (0.0-4.40); Cholesterol 132 mg/dL (0-200); Free T4 Free Thyroxine 1.04 ng/dL (0.82-1.77); Globulin 3.5 g/dL (1.3-4.6); Glomerular Filtration Rate 56.6 mL/min (90-130); Glucose 101 mg/dL (65-115); HDL Cholesterol 17 mg/dL (60-100); LDL Cholesterol Calculated 42 mg/dL (50-129); LDL HDL Ratio 2.47 RATIO (0.00-3.22); Osmolality Calculated 289 mOsm/kg (285-295); Potassium 3.9 mmol/L (3.5-5.1); Sodium 139 mmol/L (136-145); Thyroid Stimulating Hormone 15.31 uIU/mL (0.27-4.20); Total Bilirubin 0.2 mg/dL (0.15-1.2); Total Protein 7.8 g/dL (6.6-8.7); Triglycerides 367 mg/dL (0-150)
[2022-05-18 09:16] LABS: Folate Level 11.4 ng/mL (4.8-37.3)
[2022-05-18 09:30] LABS: Estmated Average Glucose 229; Hemoglobin A1C 9.6 % (4.0-6.0)
[2022-05-18 09:49] LABS: Vitamin B12 960 pg/mL (232-1245)
== END 2022-05-18 07:26 | disposition home or self-care (01) ==
LOC: LAB 07:29
PROVIDERS: PCP Family Medicine; Visit Provider Internal Medicine
DX: E03.9 Hypothyroidism, unspecified (principal); E11.42 Type 2 diabetes mellitus with diabetic polyneuropathy; E11.65 Type 2 diabetes mellitus with hyperglycemia; Z79.891 Long term (current) use of opiate analgesic
CPT/HCPCS: 36415; 80053; 80061; 82044; 82607; 82746; 83036; 84439; 84443

== ENCOUNTER → 2022-05-21 10:56 | Outpatient (BNVA) | payer MEDICARE, MEDICAID, SELFPAY | PROVIDERS: PCP Family Medicine; Visit Provider Internal Medicine | DX: E11.65 Type 2 diabetes mellitus with hyperglycemia (principal); E11.40 Type 2 diabetes mellitus with diabetic neuropathy, unspecified; E03.9 Hypothyroidism, unspecified; E78.1 Pure hyperglyceridemia; K76.0 Fatty (change of) liver, not elsewhere classified; E78.5 Hyperlipidemia, unspecified; Z79.891 Long term (current) use of opiate analgesic | CPT/HCPCS: 99214 ==

== ENCOUNTER → 2022-07-07 09:41 | Outpatient (BNVA) | payer MEDICARE, MEDICAID, SELFPAY | PROVIDERS: PCP Family Medicine; Visit Provider Podiatrist Foot & Ankle Surgery | DX: M21.621 Bunionette of right foot (principal); M21.622 Bunionette of left foot; M21.611 Bunion of right foot; M21.40 Flat foot [pes planus] (acquired), unspecified foot; M21.612 Bunion of left foot; E11.40 Type 2 diabetes mellitus with diabetic neuropathy, unspecified; M19.072 Primary osteoarthritis, left ankle and foot; Z79.4 Long term (current) use of insulin | CPT/HCPCS: 99213 ==

== ENCOUNTER → 2022-08-20 13:06 | Outpatient (BNVA) | payer MEDICARE, MEDICAID, SELFPAY | PROVIDERS: PCP Family Medicine; Visit Provider Internal Medicine | DX: E11.65 Type 2 diabetes mellitus with hyperglycemia (principal); E11.40 Type 2 diabetes mellitus with diabetic neuropathy, unspecified; E03.9 Hypothyroidism, unspecified; E78.1 Pure hyperglyceridemia; K76.0 Fatty (change of) liver, not elsewhere classified; Z79.4 Long term (current) use of insulin; Z79.890 Hormone replacement therapy | CPT/HCPCS: 99214 ==

== ENCOUNTER 2022-09-08 07:08 | Outpatient (CLI) | payer MEDICARE, MEDICAID, SELFPAY ==
--- NOTE | 2022-09-08 07:30 | USCV_ITS ---
Alaina Cano Age: 62 Gender: F : 1960 Exam Date: 09/08/2022 07:46 Ordering Phys: Dominguez Jo MD (Andy) ([email or web address]) Technologist: JAMESON Exam Location: [facility] [place] Indication: AAA HISTORY: Diameter (cm) AP x Transverse x Length Velocity (cm/s) Waveform Prox Aorta: 3.26 x 3.06 x 29.30 Mid Aorta: 4.17 x 4.50 x 4.73 106.60 Distal Aorta: 3.10 x 3.26 x 95.00 Right Iliac Prox: 1.07 x 1.47 x 102.50 Left Iliac Prox: 1.15 x 1.53 x 123.10 Stent Prox Landing x x Aneurysmal Sac Max x x Lt Lat Sac Dim Rt Lat Sac Dim Stent Dist Landing x x Right Iliac Stent x x Left Iliac Stent x x Right Renal Art Left Renal Art FINDINGS: Comparison:. 02/10/22. A complete assessment of the abdominal aorta was not possible. Continued increase in size of the aorta, now maximum at 4.5 cm as compared to 4.0 cm on the prior exam. Mild plaque with no stenosis. There is evidence of atherosclerotic plaque no significan stenosis in the right common iliac artery. There is evidence of atherosclerotic plaque no significan stenosis in the left common iliac artery. CONCLUSIONS Continued increase in size of the AAA, now at 4.5 cm. Recommend follow up CTA aorta for additonal evaluation at this time. Technically this study is limited and CTA will better visualize thrombus or ulceration and confirm diameter. Dr. Светлана Berg DO (Electronically Signed) Final Date: 08 September 2022 08:47 S
[2022-09-08 07:58] LABS: Estmated Average Glucose 252; Hemoglobin A1C 10.4 % (4.0-6.0)
[2022-09-08 08:01] LABS: Alanine Aminotransferase 21 U/L (0-33); Albumin Level 3.9 g/dL (3.5-5.2); Alkaline Phosphatase 131 U/L (35-105); Anion Gap 15.3 (5-19); Blood Urea Nitrogen 12 mg/dL (8-23); Calcium 8.6 mg/dL (8.5-10.5); Carbon Dioxide 24 mmol/L (22-29); Chloride 103 mmol/L (98-107); Chol HDL Ratio 9.56 mg/dL (0.0-4.40); Cholesterol 153 mg/dL (0-200); Globulin 3.2 g/dL (1.3-4.6); Glomerular Filtration Rate 72.9 mL/min (90-130); Glucose 291 mg/dL (65-115); HDL Cholesterol 16 mg/dL (60-100); Osmolality Calculated 296 mOsm/kg (285-295); Potassium 4.3 mmol/L (3.5-5.1); Sodium 138 mmol/L (136-145); Total Bilirubin 0.2 mg/dL (0.15-1.2); Total Protein 7.1 g/dL (6.6-8.7)
[2022-09-08 08:13] LABS: Aspartate Amino Transferase 5 U/L (0-32)
[2022-09-08 08:22] LABS: Triglycerides 1026 mg/dL (0-150)
[2022-09-08 08:40] LABS: LDL Cholesterol Direct 57 mg/dL (0-100)
[2022-09-08 08:55] LABS: Creatinine Urine, Random 16 mg/dL (28-217); Microalbumin Random Urine 2 ug/dL (0-20)
[2022-09-08 08:58] LABS: Microalbum Creatinine Ratio Ur 125 mg/dL (0-20)
== END 2022-09-08 07:09 | disposition home or self-care (01) ==
PROVIDERS: PCP Family Medicine; Referring Provider Internal Medicine; Visit Provider Thoracic Surgery (Cardiothoracic Vascular Surgery)
DX: I71.40 Abdominal aortic aneurysm, without rupture, unspecified (principal); E11.65 Type 2 diabetes mellitus with hyperglycemia; E03.9 Hypothyroidism, unspecified; Z79.891 Long term (current) use of opiate analgesic; I70.8 Atherosclerosis of other arteries
CPT/HCPCS: 36415; 80053; 80061; 82044; 83036; 83721; 84439; 84443; 93978

== ENCOUNTER → 2022-09-10 10:26 | Outpatient (BNVA) | payer MEDICARE, MEDICAID, SELFPAY | PROVIDERS: PCP Family Medicine; Visit Provider Thoracic Surgery (Cardiothoracic Vascular Surgery) | DX: I71.40 Abdominal aortic aneurysm, without rupture, unspecified (principal) | CPT/HCPCS: 99213 ==

== ENCOUNTER → 2022-10-06 11:45 | Outpatient (BNVA) | payer MEDICARE, MEDICAID, SELFPAY | PROVIDERS: PCP Family Medicine; Visit Provider Surgery | DX: K63.2 Fistula of intestine (principal) | CPT/HCPCS: 99203 ==

== ENCOUNTER 2022-10-08 13:53 | Outpatient (CLI) | payer MEDICARE, MEDICAID, SELFPAY ==
--- NOTE | 2022-10-08 14:00 | CT_ITS ---
WS: [id number] CT angio abdomen pelvis [id number] REASON FOR EXAM: AAA TECHNIQUE: After the intravenous administration of contrast multiple thin section images were obtaine d to the abdomen in the arterial phase. Coronal and sagittal reconstructions were then obtained. IV CONTRAST ADMINISTERED: 100 mL of Omnipaque 350 TOTAL EXAM DLP: 562.[address] scans at [facility] use at least one of these dose optimization techniques: automat ed exposure control; mA and/or kV adjustment per patient size (includes targeted exams where dose is matched to clinical indication); or iterative reconstruction. FINDINGS: Normal liver, spleen, pancreas, and gallbladder. Small cyst in the left kidney. Extensive calcified plaque in the abdominal aorta. Mild stenosis in the origin of the celiac artery a nd the left renal artery. Abdominal aortic aneurysm with significant mural thrombus. The aneurysm measures 4.1 x 4.1 cm which i s essentially unchanged compared to previous examination of 07/03/2021. The appearance of the thrombus and the patent lumen of the aneurysm demonstrate no interval change compared to the previous study of 07/03/2021. Mild stenosis in the origin of the iliac arteries. CT/CT angio abdomen pelvis [id number] IMPRESSION: Abdominal aortic aneurysm as above. The aneurysm appears stable compared to the previous examination of 07/03/2021.
[2022-10-08] MEDS: iohexol 350 mg/mL 500 mL Btl (per mL) IV (14:17)
== END 2022-10-08 13:54 | disposition home or self-care (01) ==
PROVIDERS: PCP Family Medicine; Visit Provider Thoracic Surgery (Cardiothoracic Vascular Surgery)
DX: I71.40 Abdominal aortic aneurysm, without rupture, unspecified (principal)
CPT/HCPCS: 74174; Q9967

== ENCOUNTER → 2022-10-13 08:43 | Outpatient (BNVA) | payer MEDICARE, MEDICAID, SELFPAY | PROVIDERS: PCP Family Medicine; Visit Provider Podiatrist Foot & Ankle Surgery | DX: E11.40 Type 2 diabetes mellitus with diabetic neuropathy, unspecified (principal); L60.3 Nail dystrophy; L84 Corns and callosities; M19.079 Primary osteoarthritis, unspecified ankle and foot; M21.40 Flat foot [pes planus] (acquired), unspecified foot; M21.621 Bunionette of right foot; M21.622 Bunionette of left foot; M21.611 Bunion of right foot; M21.612 Bunion of left foot; Z79.4 Long term (current) use of insulin | CPT/HCPCS: 11055; 11721; 99212 ==

== ENCOUNTER 2022-11-05 09:55 | Outpatient (CLI) | payer MEDICARE, MEDICAID, SELFPAY ==
--- NOTE | 2022-11-05 10:03 | MM_ITS ---
WS: [id number] BILATERAL 3D TOMOSYNTHESIS DIGITAL DIAGNOSTIC MAMMOGRAPHY WITH CAD CLINICAL INFORMATION: LT 6MFU HISTORY: 6-month follow-up COMPARISON: 05/07/2022 and 10/07/2021 TECHNIQUE: Bilateral CC, MLO, and ML views. FINDINGS: Scattered fibroglandular densities bilaterally. Again seen is the previously described ovoid nodule s ubareolar LEFT breast measuring 10 mm. This is unchanged compared to previous. Ultrasound described b elow Right breast is unchanged and unremarkable. ULTRASOUND BREAST LEFT TECHNIQUE: Ultrasound left breast focused area of concern. CLINICAL INFORMATION: LT 6MFU COMPARISON: 05/07/2022 FINDINGS: Ultrasound LEFT breast at the nipple. Several dilated ducts are visualized consistent with ductal e ctasia unchanged in appearance compared to previous. No visualized intraductal lesions. Stable previo usly described adjacent lobulated cluster of microcysts measuring 1.2 x 1.0 x 0.6 cm This likely corresponds to the mammography findings at the 3:00 position as previously discussed. Con tinued stability is reassuring and recommend return to annual screening mammography IMPRESSION: MM/[place] [id number] BI-RADS: 2-Benign FOLLOW UP: 1 Year Follow-up Recommend return to annual screening mammography.
== END 2022-11-05 09:56 | disposition home or self-care (01) ==
PROVIDERS: PCP Family Medicine; Visit Provider Family Medicine
DX: N63.25 Unspecified lump in the left breast, overlapping quadrants (principal)
CPT/HCPCS: 76642; 77062; G0279

== ENCOUNTER 2022-11-19 09:07 | Outpatient (CLI) | payer MEDICARE, MEDICAID, SELFPAY ==
[2022-11-19 10:54] LABS: Estmated Average Glucose 214; Hemoglobin A1C 9.1 % (4.0-6.0)
[2022-11-19 10:55] LABS: Alanine Aminotransferase 18 U/L (0-33); Albumin Level 4.7 g/dL (3.5-5.2); Alkaline Phosphatase 100 U/L (35-105); Aspartate Amino Transferase 14 U/L (0-32); Chol HDL Ratio 4.97 mg/dL (0.0-4.40); Cholesterol 164 mg/dL (0-200); Free T4 Free Thyroxine 1.04 ng/dL (0.82-1.77); Glucose 41 mg/dL (65-115); HDL Cholesterol 33 mg/dL (60-100); LDL Cholesterol Calculated 65 mg/dL (50-129); LDL HDL Ratio 1.97 RATIO (0.00-3.22); Sodium 145 mmol/L (136-145); Thyroid Stimulating Hormone 21.27 uIU/mL (0.27-4.20); Triglycerides 330 mg/dL (0-150)
[2022-11-19 11:06] LABS: Creatinine Urine, Random 20 mg/dL (28-217); Microalbumin Random Urine 2 ug/dL (0-20)
[2022-11-19 11:11] LABS: Microalbum Creatinine Ratio Ur 100 mg/dL (0-20)
[2022-11-19 11:20] LABS: Anion Gap 16.4 (5-19); Blood Urea Nitrogen 13 mg/dL (8-23); Calcium 9.1 mg/dL (8.5-10.5); Carbon Dioxide 23 mmol/L (22-29); Chloride 109 mmol/L (98-107); Globulin 3.3 g/dL (1.3-4.6); Glomerular Filtration Rate 63.7 mL/min (90-130); Osmolality Calculated 297 mOsm/kg (285-295); Total Bilirubin 0.2 mg/dL (0.15-1.2)
[2022-11-19 11:30] LABS: Potassium 3.4 mmol/L (3.5-5.1)
== END 2022-11-19 09:08 | disposition home or self-care (01) ==
PROVIDERS: PCP Family Medicine; Visit Provider Internal Medicine
DX: E11.65 Type 2 diabetes mellitus with hyperglycemia (principal); E03.9 Hypothyroidism, unspecified; E11.40 Type 2 diabetes mellitus with diabetic neuropathy, unspecified; Z79.891 Long term (current) use of opiate analgesic
CPT/HCPCS: 36415; 80053; 80061; 82044; 83036; 84439; 84443

== ENCOUNTER → 2022-11-23 10:02 | Outpatient (BNVA) | payer MEDICARE, MEDICAID, SELFPAY | PROVIDERS: PCP Family Medicine; Visit Provider Internal Medicine | DX: E11.65 Type 2 diabetes mellitus with hyperglycemia; E11.40 Type 2 diabetes mellitus with diabetic neuropathy, unspecified; E03.9 Hypothyroidism, unspecified; E78.1 Pure hyperglyceridemia; Z79.4 Long term (current) use of insulin; Z79.890 Hormone replacement therapy | CPT/HCPCS: 99214 ==

== ENCOUNTER → 2023-01-19 08:41 | Outpatient (BNVA) | payer MEDICARE, MEDICAID, SELFPAY | PROVIDERS: PCP Family Medicine; Visit Provider Podiatrist Foot & Ankle Surgery | DX: E11.40 Type 2 diabetes mellitus with diabetic neuropathy, unspecified (principal); M19.079 Primary osteoarthritis, unspecified ankle and foot; M21.40 Flat foot [pes planus] (acquired), unspecified foot; M21.621 Bunionette of right foot; M21.622 Bunionette of left foot; M21.611 Bunion of right foot; M21.612 Bunion of left foot; L60.3 Nail dystrophy; L84 Corns and callosities; Z79.4 Long term (current) use of insulin | CPT/HCPCS: 11056; 11721 ==

== ENCOUNTER 2023-02-02 12:32 | Emergency (ER) | payer MEDICARE, MEDICAID, SELFPAY ==
[2023-02-02] VITALS (15 sets, daily range): BP systolic 142–170; BP diastolic 92–124; PULSE 65–85; RESP 16–24; TEMP 36.6; O2SAT 92–99; BMI 30.9
[2023-02-02 13:03] LABS: Glucose Point of Care 177 mg/dL (70-110)
--- NOTE | 2023-02-02 13:06 | CT_ITS ---
WS: [id number] CT ABDOMEN AND PELVIS WITH CONTRAST HISTORY: vomiting TECHNIQUE: Imaging performed of the abdomen and pelvis with IV contrast. Single phase imaging of the abdomen. Coronal and sagittal reformats are submitted. All CT scans at [facility] use at [address] one of these dose optimization techniques: automated exposure control; mA and/or kV adjustment per patient size (includes targeted exams where dose is matched to clinical indication); or iterative re construction. IV CONTRAST: Omnipaque 350; 100 mL IV. Oral contrast: No DLP: 762.73 mGy.cm COMPARISON: 12/09/2015, 10/08/2022 Lower thorax: Lung bases are clear. Heart is normal size. No hiatal hernia. Liver/biliary system: Hepatic steatosis. Mild hepatic enlargement. Gallbladder: Normal. No gallstones or wall thickening. No pericholecystic fluid. Pancreas: Normal size pancreas and pancreatic duct. No adjacent inflammation. Spleen: Normal size spleen. No mass or infarct. Adrenal glands: Normal. Right kidney: Normal. Left kidney: 1.7 cm cyst upper pole. No obstruction. There are a few small cortical cysts which are t oo small to characterize. Mild cortical scarring the mid LEFT kidney. Aorta: Patient has a known abdominal aortic aneurysm. There is a saccular aneurysm extending over a l ength of 6.2 cm. Maximum transverse diameter of 4.0 cm. There is a large amount of thrombus extending into the saccular component with ulcerated plaque. The aneurysm has slowly increased in size since a t least 2015. Similar in size to 10/08/2022. Lymphadenopathy: None. Free fluid: None. GI tract: Normal stomach and small bowel. No evidence for appendicitis. There are few scattered diver ticula in the descending colon. No acute diverticulitis. Abdominal wall: Unremarkable abdominal wall. No hernia. Pelvis: Prior hysterectomy. Bones: Disc space narrowing at L5-S1. IMPRESSION: 1. No acute abdominal or pelvic abnormalities. 2. Mild hepatic steatosis and hepatomegaly. 3. Negative gallbladder. 4. Saccular abdominal aortic aneurysm similar in size as compared to 10/08/2022. Aneurysm has slowly increased in size since 2016. No rupture. 5. No free fluid or free air. 6. Prior hysterectomy. 7. No GI tract obstruction.
--- NOTE | 2023-02-02 13:06 | CT_ITS ---
WS: [id number] CT HEAD NONCONTRAST HISTORY: Headache with vomiting and confusion. TECHNIQUE: Contiguous axial imaging performed through the brain in 2.5 mm imaging. Bone and soft tiss ue windows. Sagittal and coronal reformats reviewed. All CT scans at [facility] use at least one of these dose optimization techniques: automated exposure control; mA and/or kV adjustment per pa tient size (includes targeted exams where dose is matched to clinical indication); or iterative recon struction. DLP: 1182.88 mGy.cm COMPARISON: 07/01/2005 No acute intracranial hemorrhage, midline shift or mass effect. Mild atrophy and mild small vessel ischemic disease. No prior infarct. Ventricles: Normal size with no hydrocephalus. Paranasal sinuses: As visualized are clear. Mastoid air cells: Well pneumatized. Calvarium and scalp: Skull is intact with no soft tissue edema or swelling. IMPRESSION: Unremarkable noncontrast CT head. No acute findings.
--- NOTE | 2023-02-02 13:10 | ED_ITS ---
HPI - Nausea/Vomiting/Diarrhea General: Chief complaint: Nausea/Vomiting/Diarrhea Stated complaint: NV/Confusion Time Seen by Provider: 02/02/23 12:50 Source: patient Mode of arrival: ambulatory Limitations: no limitations History of Present Illness: 62-year-old female states that over the last 2 days she has been having vomiting decreased appetite she states she has had some abdominal cramping along with a headache. Patient lives alone she states she been feeling confused at times here she is answering my questions appropriately she knows where she is her name and the year. No known fevers denies any worsening proving factors. Has multiple medical issues Associated nausea: Yes Associated symtoms: Reports headache(s) and nausea; Denies chest pain or dysuria Review of Systems Const: Denies: fever(s), chills, body aches or change in appetite Eyes: Denies: blurry vision or eye discomfort ENMT: Denies: throat pain or dental pain Card: Denies: chest pain Resp: Denies: dyspnea GI: Reports: nausea and vomiting; Denies: abdominal pain or diarrhea : Denies: dysuria Musc: Denies: neck pain or back pain Skin/Breast: Denies: rash Neuro: Reports: headache(s) Psych: Denies: depression PFSH ED PFSH: Medical History Cervical stenosis of spine Cervicogenic headache COPD (chronic obstructive pulmonary disease) Current every day smoker Diabetes mellitus Diverticulitis Lumbar back pain Lumbar spine pain Opioid contract exists Poorly controlled type 2 diabetes mellitus Spondylosis without myelopathy or radiculopathy, cervical region Surgical History H/O section H/O ventral hernia repair H/O: hysterectomy History of partial colectomy Family History Sister Cancer Mother Diverticulitis Depression Other CAD (coronary artery disease) Congestive heart failure Diabetes Social History Smoking and tobacco/nicotine status: current every day tobacco/nicotine user cigarettes Packs smoked per day: 1 Years cigarettes smoked: 48 [ Other cigarette details: 1PPD, 49PY] Alcohol intake: former Substance/Drug Use: never Adopted: No Caregiver/support person: No Lives independently: Yes Household members: none Marital status: Number of children: 2 Current occupational status: disabled Juana/Islam: None Special juana needs: No Agree to transfusion: Yes Physical Exam Const: COMMON NORMALS: patient oriented x3 HENMT: COMMON NORMALS: normocephalic and atraumatic HEAD & SCALP: normocephalic and atraumatic Eye: COMMON NORMALS: Equal, round and reactive pupils present and EOMs intact bilaterally PUPIL: Yes Equal, round and reactive pupils present Neck/C-Spine: COMMON NORMALS: full ROM and supple Chest: COMMONS NORMALS: normal inspection of the chest and normal palpation of entire chest wall Resp: COMMON NORMALS: normal respiratory effort, No retractions, No use of accessory muscles and clear to auscultation bilaterally AUSCULTATION: clear to auscultation bilaterally Cardio: COMMON NORMALS: regular rate, regular rhythm and No murmurs present (Cardio) RATE: regular rate RHYTHM: regular rhythm GI: COMMON NORMALS: Normal to inspection, nondistended, normoactive bowel sounds present, Soft to palpation, non-tender and no masses PALPATION: Yes Soft to palpation Extremity: COMMON NORMALS: normal to inspection and full ROM Neuro: COMMON NORMALS: patient oriented x3, moves all extremities and no focal motor deficits Psych: COMMON NORMALS: mental status grossly normal, Normal thought process present and cooperative THOUGHT PROCESS: Normal thought process present Skin: COMMON NORMALS: no rashes or lesions noted and no wounds GENERAL SKIN EXAM: no rashes or lesions noted Course Vital Signs: Vital signs: Vital Signs Temperature 97.8 F 02/02/23 12:48 Pulse Rate 85 02/02/23 15:36 Respiratory Rate 17 02/02/23 15:36 Blood Pressure 170/100 02/02/23 15:36 Pulse Oximetry 98 02/02/23 15:36 Oxygen Delivery Me thod Room Air 02/02/23 14:41 MDM - Nausea/Vomiting/Diarrhea Medical Decision Making Patient presents here with nausea vomiting along with slight headache she feels much improved after Zofran she been able to tolerate p.o. here as well. Blood work along with CT of her abdomen and CT head are all normal she is stable for discharge she is to follow-up with PCP and return if worsening. Medical Records I reviewed the patient's medical records. Lab Data I reviewed the patient's lab results. 02/02/23 13:00 02/02/23 13:00 Laboratory Results WBC 12.71 10^3/uL (3.29-11.43) H 02/02/23 13:00 RBC 6.18 10^6/uL (3.85-5.65) H 02/02/23 13:00 Hgb 14.90 g/dL (11.27-16.99) 02/02/23 13:00 Hct 48.2 % (36-47) H 02/02/23 13:00 MCV 78.0 fl (85-98) L 02/02/23 13:00 MCH 24.1 pg (27-33) L 02/02/23 13:00 MCHC 30.9 g/dL (30-55) 02/02/23 13:00 RDW 20.9 % (12.1-15.1) H 02/02/23 13:00 Plt Count 434 10^3/cmm (157-399) H 02/02/23 13:00 MPV 9.2 fL (7.4-10.4) 02/02/23 13:00 Neut % (Auto) 68.8 % 02/02/23 13:00 Lymph % (Auto) 23.4 % 02/02/23 13:00 Gosper % (Auto) 5.6 % 02/02/23 13:00 Eos % (Auto) 0.2 % 02/02/23 13:00 Baso % (Auto) 1.2 % 02/02/23 13:00 Neut # (Auto) 8.75 10^3/uL (1.8-7.7) H 02/02/23 13:00 Lymph # (Auto) 3.0 10^3/uL (0.8-4.8) 02/02/23 13:00 Gosper # (Auto) 0.7 10^3/uL (0.2-0.9) 02/02/23 13:00 Eos # (Auto) 0.0 10^3/uL (0.0-0.8) 02/02/23 13:00 Baso # (Auto) 0.2 10^3/uL (0.0-0.1) H 02/02/23 13:00 Nucleated RBC % (auto) 0 % 02/02/23 13:00 Nucleated RBCs # 0.0 /100WBC 02/02/23 13:00 Sodium 140 mmol/L (136-145) 02/02/23 13:00 Potassium 4.1 mmol/L (3.5-5.1) 02/02/23 13:00 Chloride 101 mmol/L (98-107) 02/02/23 13:00 Carbon Dioxide 22 mmol/L (22-29) 02/02/23 13:00 Anion Gap 21.1 (5-19) H 02/02/23 13:00 BUN 13 mg/dL (8-23) 02/02/23 13:00 Creatinine 1.0 mg/dL (0.5-0.9) H 02/02/23 13:00 GFR Calculation 56.4 mL/min (90-130) L 02/02/23 13:00 Glucose 173 mg/dL (65-115) H 02/02/23 13:00 POC Glucose 177 mg/dL (70-110) H 02/02/23 12:55 Calculated Osmolality 294 mOsm/kg (285-295) 02/02/23 13:00 Calcium 9.7 mg/dL (8.5-10.5) 02/02/23 13:00 Total Bilirubin 0.5 mg/dL (0.15-1.2) 02/02/23 13:00 AST 25 U/L (0-32) 02/02/23 13:00 ALT 22 U/L (0-33) 02/02/23 13:00 Alkaline Phosphatase 103 U/L (35-105) 02/02/23 13:00 Ammonia 14 umol/L (11-51) 02/02/23 13:00 Total Protein 8.9 g/dL (6.6-8.7) H 02/02/23 13:00 Albumin 5.0 g/dL (3.5-5.2) 02/02/23 13:00 Globulin 3.9 g/dL (1.3-4.6) 02/02/23 13:00 Lipase 51 U/L (13-60) 02/02/23 13:00 No radiology studies performed this visit Discharge Plan Discharge Patient Disposition: Home Clinical Impression: Vomiting Condition: Stable Prescriptions: New ondansetron 4 mg tablet,disintegrating 4 mg PO Q6H PRN (Reason: nausea and vomiting) Qty: 14 0RF No Action lisinopril 40 mg tablet 40 mg PO QAM amlodipine 10 mg tablet 10 mg PO DAILY pantoprazole [Protonix] 40 mg tablet,delayed release (DR/EC) 40 mg PO QAM (DME) FreeStyle Daria 2 Entriken Misc See Rx Instructions .Route Qty: 1 0RF Rx Instructions: Check BS 4-6 times a day. atorvastatin 40 mg tablet 40 mg PO BEDTIME tizanidine 4 mg tablet 4 mg PO QID PRN (Reason: muscle spasticity) 90 Days Qty: 360 0RF insulin lispro [Humalog KwikPen Insulin] 100 unit/mL insulin pen 20 unit SUBCUT TID (DME) FreeStyle Daria 2 Sensor Kit See Rx Instructions .Route Qty: 3 3RF Rx Instructions: Change every 14 days. (DME) FreeStyle Test Strip See Rx Instructions .Route Qty: 100 2RF Rx Instructions: As directed ([facility] [place] Custom Molded Othotics See Rx Instructions .Route .MEDSUPPLY Qty: 1 0RF Rx Instructions: As directed by [facility] oxycodone 15 mg tablet 15 mg PO BID 30 Days Qty: 46 0RF (DME) pen needle, diabetic [BD Amada 2nd Gen Pen Needle] 32 gauge x 5/32 needle See Rx Instructions .ROUTE .COMPLEX Qty: 100 0RF Dose Instruction: CHECK BLOOD SUGAR FOUR TIMES DAILY Rx Instructions: CHECK BLOOD SUGAR FOUR TIMES DAILY gabapentin 300 mg capsule 300 mg PO BID 90 Days Qty: 180 0RF Lantus Solostar U-100 Insulin 100 unit/mL (3 mL) insulin pen 72 unit SUBCUT DAILY 30 Days Qty: 45 2RF latanoprost 0.005 % drops 1 drp ophthalmic (eye) QPM venlafaxine 150 mg capsule,extended release 24hr 150 mg PO QAM trazodone 300 mg tablet 150 mg PO BEDTIME PRN (Reason: Sleep) levothyroxine 137 mcg tablet 137 mcg PO QAM Wixela Inhub 250-50 mcg/dose blister with device 1 inh inhalation Q12H Rx Instructions: ext shows last filled 05/10/22 Ventolin HFA 90 mcg/actuation HFA aerosol inhaler 2 - 4 puff INHALATION QID PRN (Reason: Shortness Of Breath) pioglitazone 30 mg tablet 30 mg PO QAM escitalopram oxalate 20 mg tablet 20 mg PO QAM icosapent ethyl [Vascepa] 1 gram capsule 2 g PO BID ibuprofen 200 mg Tablet 400 mg PO Q6H PRN (Reason: Pain) Discharge Orders: Discharge ED (Routine); Ordered 02/02/23 Ordered By: Chayo Montaño Referrals: Jose Alvarenga MD [Primary Care Provider] - 1-3 days Discharge Diet: Advance as tolerated Discharge Activity: Resume usual activity Patient Instructions: Acute Nausea and Vomiting (ED) Coding Level of Care Code ED Fire Control Mechanic for Shmuel Green
[2023-02-02 13:11] LABS: Basophils # 0.2 10^3/uL (0.0-0.1); Basophils % 1.2 %; Eosinophils % 0.2 %; Hematocrit 48.2 % (36-47); Lymphocytes % 23.4 %; Mean Corpuscular HGB Conc 30.9 g/dL (30-55); Mean Corpuscular Hemoglobin 24.1 pg (27-33); Mean Platelet Volume 9.2 fL (7.4-10.4); Monocytes # 0.7 10^3/uL (0.2-0.9); Monocytes % 5.6 %; Neutrophils # 8.75 10^3/uL (1.8-7.7); Neutrophils % 68.8 %; Nucleated Red Blood Cells % 0 %; Platelet Count 434 10^3/cmm (157-399); Red Blood Count 6.18 10^6/uL (3.85-5.65); Red Cell Distribution Width 20.9 % (12.1-15.1); White Blood Count 12.71 10^3/uL (3.29-11.43)
[2023-02-02 13:23] LABS: Ammonia 14 umol/L (11-51)
[2023-02-02] MEDS: sodium chloride 0.9% 1,000 ML 999 ML IV (13:23)
[2023-02-02 13:24] LABS: Alanine Aminotransferase 22 U/L (0-33); Alkaline Phosphatase 103 U/L (35-105); Aspartate Amino Transferase 25 U/L (0-32); Blood Urea Nitrogen 13 mg/dL (8-23); Calcium 9.7 mg/dL (8.5-10.5); Carbon Dioxide 22 mmol/L (22-29); Globulin 3.9 g/dL (1.3-4.6); Glomerular Filtration Rate 56.4 mL/min (90-130); Glucose 173 mg/dL (65-115); Lipase 51 U/L (13-60); Total Bilirubin 0.5 mg/dL (0.15-1.2); Total Protein 8.9 g/dL (6.6-8.7)
[2023-02-02] MEDS: ondansetron 2 mg/ML SDV 2 mL 4 MG IVP (13:24)
[2023-02-02] MEDS: morphine 4 mg/mL SDV 1 mL IVP (13:25)
[2023-02-02 13:35] LABS: Anion Gap 21.1 (5-19); Chloride 101 mmol/L (98-107); Osmolality Calculated 294 mOsm/kg (285-295); Potassium 4.1 mmol/L (3.5-5.1); Sodium 140 mmol/L (136-145)
--- NOTE | 2023-02-02 14:26 | PC.PHAR ---
pt states she takes care of her own medications-pt states her metformin 500mg 2 tabs bid filled 12/23/22 90d/s and levothyroxine 200mcg po daily filled 11/23/22 90d/s was dced-
== END 2023-02-02 15:44 | disposition home or self-care (01) ==
PROVIDERS: Emergency Provider Emergency Medicine; PCP Family Medicine
DX: R11.11 Vomiting without nausea (principal); Z79.4 Long term (current) use of insulin; F17.210 Nicotine dependence, cigarettes, uncomplicated; J44.9 Chronic obstructive pulmonary disease, unspecified; E11.9 Type 2 diabetes mellitus without complications
CPT/HCPCS: 36415; 36416; 70450; 74177; 80053; 82140; 82962; 83690; 85025; 96361; 96374; 96375; 99285; J2270; J2405; J7030; Q9967

== ENCOUNTER 2023-02-03 11:19 | Emergency (ER) | payer MEDICARE, MEDICAID, SELFPAY ==
--- NOTE | 2023-02-03 11:21 | XR_ITS ---
WS: [id number] Portable AP upright chest, 02/03/2023 Clinical Data: sob Comparison: Two-view chest, 03/25/2015. Findings: Bilateral patchy lower lobe opacities may represent atelectasis and/or pneumonia. No nodule s, masses or effusions are seen. The heart is slightly enlarged. The pulmonary vascularity is not inc reased. No pneumothorax is seen. The aortic arch shows minimal tortuosity. Impression: 1. Bilateral patchy lower lobe opacities which could represent atelectasis and/or pneumonia. 2. Mild cardiomegaly. 3. Atherosclerosis.
--- NOTE | 2023-02-03 11:29 | ECG_ITS ---
[facility] Test Date: 2023-02-03 Pat Name: Alaina Cano Department: Room: Gender: Female Swatch Paster: : 1960 Requested By: Chayo Montaño Order Number: [id number] Jez MD: Rip Lawton M.D. Measurements Intervals [place] Rate: 72 P: 55 [place]: 179 QRS: -38 QRSD: 89 T: 73 QT: 399 QTc: 439 Interpretive Statements SINUS RHYTHM LEFT AXIS DEVIATION [QRS AXIS < -30] POSSIBLE RIGHT VENTRICULAR CONDUCTION DELAY [RSR (QR) IN V1/V2] Compared to ECG 07/10/2014 23:29:51 Left-axis deviation now present Incomplete right bundle-branch block no longer present T-wave abnormality no longer present Electronically Signed On 02-04-2023 0:41:57 SENIOR ADMINISTRATIVE SUPPORT by Rip Lawton M.D. [id number]
[2023-02-03 11:33] VITALS: BP 148/87; PULSE 75; RESP 18; TEMP 36.4; O2SAT 97; BMI 30.9
--- NOTE | 2023-02-03 11:46 | W.ED.SOB ---
HPI - SOB/Dyspnea General: Chief Complaint: Shortness of Breath/Dyspnea Stated Complaint: SOB/Resp Distress Time Seen by Provider: 02/03/23 11:20 Source: patient and EMS Mode of arrival: EMS Limitations: no limitations History of Present Illness: HPI Narrative: 62-year-old female states that over the last 3 to 4 days she has not been feeling well states she has had body aches along with abdominal pain nausea headache states today she started having some shortness of breath. Had seen her yesterday for similar complaints she did not have the shortness of breath yesterday she had a work-up including CT head CT abdomen that were normal. Patient here is currently on no oxygen she is 95% denies any known fevers. Associated symptoms: Reports abdominal pain and nausea; Deny chest pain, fever(s) or vomiting Review of Systems Const: Reports: body aches; Denies: fever(s), chills or change in appetite Eyes: Denies: blurry vision or eye discomfort ENMT: Denies: throat pain or dental pain Card: Denies: chest pain Resp: Reports: dyspnea GI: Reports: abdominal pain and nausea; Denies: vomiting or diarrhea : Denies: dysuria Musc: Denies: neck pain or back pain Skin/Breast: Denies: rash Neuro: Reports: headache(s) Psych: Denies: depression PFSH ED PFSH: Medical History Cervical stenosis of spine Cervicogenic headache COPD (chronic obstructive pulmonary disease) Current every day smoker Diabetes mellitus Diverticulitis Lumbar back pain Lumbar spine pain Opioid contract exists Poorly controlled type 2 diabetes mellitus Spondylosis without myelopathy or radiculopathy, cervical region Surgical History H/O section H/O ventral hernia repair H/O: hysterectomy History of partial colectomy Family History Sister Cancer Mother Diverticulitis Depression Other CAD (coronary artery disease) Congestive heart failure Diabetes Social History Smoking and tobacco/nicotine status: current every day tobacco/nicotine user cigarettes Packs smoked per day: 1 Years cigarettes smoked: 48 [ Other cigarette details: 1PPD, 49PY] Alcohol intake: former Substance/Drug Use: never Adopted: No Caregiver/support person: No Lives independently: Yes Household members: none Marital status: Number of children: 2 Current occupational status: disabled Juana/Restorationism: None Special juana needs: No Agree to transfusion: Yes Physical Exam Const: COMMON NORMALS: no acute distress, patient oriented x3 and healthy appearing HENMT: COMMON NORMALS: normocephalic and atraumatic HEAD & SCALP: normocephalic and atraumatic Eye: COMMON NORMALS: Equal, round and reactive pupils present and EOMs intact bilaterally PUPIL: Yes Equal, round and reactive pupils present Neck/C-Spine: COMMON NORMALS: full ROM and supple Chest: COMMONS NORMALS: normal inspection of the chest and normal palpation of entire chest wall Resp: COMMON NORMALS: normal respiratory effort, No retractions, No use of accessory muscles and clear to auscultation bilaterally AUSCULTATION: clear to auscultation bilaterally Cardio: COMMON NORMALS: regular rate, regular rhythm and No murmurs present (Cardio) RATE: regular rate RHYTHM: regular rhythm GI: COMMON NORMALS: Normal to inspection, nondistended, normoactive bowel sounds present, Soft to palpation, non-tender and no masses PALPATION: Yes Soft to palpation Extremity: COMMON NORMALS: normal to inspection and full ROM Neuro: COMMON NORMALS: patient oriented x3, moves all extremities and no focal motor deficits Psych: COMMON NORMALS: mental status grossly normal, Normal thought process present and cooperative THOUGHT PROCESS: Normal thought process present Skin: COMMON NORMALS: no rashes or lesions noted and no wounds GENERAL SKIN EXAM: no rashes or lesions noted Course Vital Signs: Vital signs: Vital Signs Temperature 97.6 F 02/03/23 11:33 Pulse Rate 75 02/03/23 11:33 Respiratory Rate 18 02/03/23 11:33 Blood Pressure 148/87 02/03/23 11:33 Pulse Oximetry 97 02/03/23 11:33 Oxygen Delivery Me thod Room Air 02/03/23 11:33 MDM - SOB/Dyspnea Medical Decision Making Patient presents here with some dyspnea body aches and generally feeling unwell CT showed a viral versus possible bacterial pneumonia likely an upper restaurant infection will start on doxycycline she is stable for discharge she is to return if worsening. Medical Records I reviewed the patient's medical records. Lab Data I reviewed the patient's lab results. 02/03/23 11:35 02/03/23 11:35 Labs/Radiology: Laboratory Results WBC 12.44 10^3/uL (3.29-11.43) H 02/03/23 11:35 RBC 5.77 10^6/uL (3.85-5.65) H 02/03/23 11:35 Hgb 13.80 g/dL (11.27-16.99) 02/03/23 11:35 Hct 44.9 % (36-47) 02/03/23 11:35 MCV 77.8 fl (85-98) L 02/03/23 11:35 MCH 23.9 pg (27-33) L 02/03/23 11:35 MCHC 30.7 g/dL (30-55) 02/03/23 11:35 RDW 20.7 % (12.1-15.1) H 02/03/23 11:35 Plt Count 402 10^3/cmm (157-399) H 02/03/23 11:35 MPV 9.4 fL (7.4-10.4) 02/03/23 11:35 Neut % (Auto) 72.2 % 02/03/23 11:35 Lymph % (Auto) 20.5 % 02/03/23 11:35 Norton % (Auto) 5.5 % 02/03/23 11:35 Eos % (Auto) 0.3 % 02/03/23 11:35 Baso % (Auto) 0.9 % 02/03/23 11:35 Neut # (Auto) 8.97 10^3/uL (1.8-7.7) H 02/03/23 11:35 Lymph # (Auto) 2.6 10^3/uL (0.8-4.8) 02/03/23 11:35 Norton # (Auto) 0.7 10^3/uL (0.2-0.9) 02/03/23 11:35 Eos # (Auto) 0.0 10^3/uL (0.0-0.8) 02/03/23 11:35 Baso # (Auto) 0.1 10^3/uL (0.0-0.1) 02/03/23 11:35 Nucleated RBC % (auto) 0 % 02/03/23 11:35 Nucleated RBCs # 0.0 /100WBC 02/03/23 11:35 PT 14.20 SECONDS (12.1-14.9) 02/03/23 11:35 INR 1.07 (0.8-1.2) 02/03/23 11:35 D-Dimer 2.76 ug/mLFEU (0-0.59) H 02/03/23 11:35 Sodium 140 mmol/L (136-145) 02/03/23 11:35 Potassium 3.8 mmol/L (3.5-5.1) 02/03/23 11:35 Chloride 104 mmol/L (98-107) 02/03/23 11:35 Carbon Dioxide 20 mmol/L (22-29) L 02/03/23 11:35 Anion Gap 19.8 (5-19) H 02/03/23 11:35 BUN 10 mg/dL (8-23) 02/03/23 11:35 Creatinine 1.1 mg/dL (0.5-0.9) H 02/03/23 11:35 GFR Calculation 50.5 mL/min (90-130) L 02/03/23 11:35 Glucose 161 mg/dL (65-115) H 02/03/23 11:35 Calculated Osmolality 293 mOsm/kg (285-295) 02/03/23 11:35 Calcium 9.5 mg/dL (8.5-10.5) 02/03/23 11:35 Total Bilirubin 0.5 mg/dL (0.15-1.2) 02/03/23 11:35 AST 24 U/L (0-32) 02/03/23 11:35 ALT 22 U/L (0-33) 02/03/23 11:35 Alkaline Phosphatase 99 U/L (35-105) 02/03/23 11:35 Troponin T Baseline 23 ng/L (0-10) H 02/03/23 11:35 NT-Pro-B Natriuret Pep 36 pg/mL (0-125) 02/03/23 11:35 Total Protein 8.3 g/dL (6.6-8.7) 02/03/23 11:35 Albumin 5.0 g/dL (3.5-5.2) 02/03/23 11:35 Globulin 3.3 g/dL (1.3-4.6) 02/03/23 11:35 Lipase 55 U/L (13-60) 02/03/23 11:35 Influenza Type A Ag negative (Negative) 02/03/23 12:06 Influenza Type B Ag negative (Negative) 02/03/23 12:06 SARS-CoV-2 Ag (Rapid) negative (Negative) 02/03/23 12:06 All radiology interpretation(s) finalized by discharge EKG Data EKG 1: I personally reviewed and interpreted this EKG as follows: EKG Interpretation Date: 02/03/23 EKG interpretation time: 11:29 Interpretation: nsr hr [address] or t wave abormalities qrs 89 qtc 424 Discharge Plan Discharge Patient Disposition: Home Clinical Impression: Upper respiratory infection Condition: Stable Prescriptions: New doxycycline hyclate 100 mg tablet 100 mg PO BID 7 Days Qty: 14 0RF No Action lisinopril 40 mg tablet 40 mg PO QAM amlodipine 10 mg tablet 10 mg PO DAILY pantoprazole [Protonix] 40 mg tablet,delayed release (DR/EC) 40 mg PO QAM (DME) FreeStyle Daria 2 Mclean Misc See Rx Instructions .Route Qty: 1 0RF Rx Instructions: Check BS 4-6 times a day. atorvastatin 40 mg tablet 40 mg PO BEDTIME tizanidine 4 mg tablet 4 mg PO QID PRN (Reason: muscle spasticity) 90 Days Qty: 360 0RF insulin lispro [Humalog KwikPen Insulin] 100 unit/mL insulin pen 20 unit SUBCUT TID (DME) FreeStyle Daria 2 Sensor Kit See Rx Instructions .Route Qty: 3 3RF Rx Instructions: Change every 14 days. (DME) FreeStyle Test Strip See Rx Instructions .Route Qty: 100 2RF Rx Instructions: As directed (DME) Custom Molded Othotics See Rx Instructions .Route .MEDSUPPLY Qty: 1 0RF Rx Instructions: As directed by [facility] oxycodone 15 mg tablet 15 mg PO BID 30 Days Qty: 46 0RF (DME) pen needle, diabetic [BD Amada 2nd Gen Pen Needle] 32 gauge x 5/32 needle See Rx Instructions .ROUTE .COMPLEX Qty: 100 0RF Dose Instruction: CHECK BLOOD SUGAR FOUR TIMES DAILY Rx Instructions: CHECK BLOOD SUGAR FOUR TIMES DAILY gabapentin 300 mg capsule 300 mg PO BID 90 Days Qty: 180 0RF Lantus Solostar U-100 Insulin 100 unit/mL (3 mL) insulin pen 72 unit SUBCUT DAILY 30 Days Qty: 45 2RF latanoprost 0.005 % drops 1 drp ophthalmic (eye) QPM venlafaxine 150 mg capsule,extended release 24hr 150 mg PO QAM trazodone 300 mg tablet 150 mg PO BEDTIME PRN (Reason: Sleep) levothyroxine 137 mcg tablet 137 mcg PO QAM Wixela Inhub 250-50 mcg/dose blister with device 1 inh inhalation Q12H Rx Instructions: ext shows last filled 05/10/22 Ventolin HFA 90 mcg/actuation HFA aerosol inhaler 2 - 4 puff INHALATION QID PRN (Reason: Shortness Of Breath) pioglitazone 30 mg tablet 30 mg PO QAM escitalopram oxalate 20 mg tablet 20 mg PO QAM icosapent ethyl [Vascepa] 1 gram capsule 2 g PO BID ibuprofen 200 mg Tablet 400 mg PO Q6H PRN (Reason: Pain) ondansetron 4 mg tablet,disintegrating 4 mg PO Q6H PRN (Reason: nausea and vomiting) Qty: 14 0RF Discharge Orders: Discharge ED (Routine); Ordered 02/03/23 Ordered By: hCayo Montaño Referrals: Jose Alvarenga MD [Primary Care Provider] - 1-3 days Discharge Diet: Advance as tolerated Discharge Activity: Resume usual activity Patient Instructions: Upper Respiratory Infection (ED) Coding Level of Care Code ED Branch Sales And Service Representative for Shmuel Green
[2023-02-03 11:49] LABS: Basophils # 0.1 10^3/uL (0.0-0.1); Basophils % 0.9 %; Eosinophils % 0.3 %; Hematocrit 44.9 % (36-47); Lymphocytes # 2.6 10^3/uL (0.8-4.8); Lymphocytes % 20.5 %; Mean Corpuscular HGB Conc 30.7 g/dL (30-55); Mean Corpuscular Hemoglobin 23.9 pg (27-33); Mean Corpuscular Volume 77.8 fl (85-98); Mean Platelet Volume 9.4 fL (7.4-10.4); Monocytes # 0.7 10^3/uL (0.2-0.9); Monocytes % 5.5 %; Neutrophils # 8.97 10^3/uL (1.8-7.7); Neutrophils % 72.2 %; Nucleated Red Blood Cells % 0 %; Platelet Count 402 10^3/cmm (157-399); Red Blood Count 5.77 10^6/uL (3.85-5.65); Red Cell Distribution Width 20.7 % (12.1-15.1); White Blood Count 12.44 10^3/uL (3.29-11.43)
[2023-02-03 12:01] LABS: INR 1.07 (0.8-1.2)
[2023-02-03] MEDS: dexamethasone 10 mg/mL INJ IVP (12:01)
[2023-02-03 12:03] LABS: D Dimer 2.76 ug/mLFEU (0-0.59)
[2023-02-03 12:07] LABS: Troponin(5th) Baseline 23 ng/L (0-10)
--- NOTE | 2023-02-03 12:15 | CT_ITS ---
WS: [id number] CT CHEST ANGIOGRAPHY WITH REFORMATS HISTORY: sob TECHNIQUE: Contiguous axial images are obtained through the chest during arterial injection of intrav enous contrast. Images are reconstructed to evaluate the pulmonary arteries. MIP imaging also reviewe d. All CT scans at [facility] use at least one of these dose optimization techniques: automat ed exposure control; mA and/or kV adjustment per patient size (includes targeted exams where dose is matched to clinical indication); or iterative reconstruction. CONTRAST: Omnipaque 350; 100 mL IV. DLP: 405.71 mGy.cm COMPARISON: 04/23/2022 No pulmonary embolism. Moderate atherosclerosis aorta. Aorta is ectatic. Mild enlargement of the LEFT heart chambers. No RIGHT heart strain. No mediastinal or hilar adenopathy. There are small indetermi isidro mediastinal and hilar lymph nodes measuring up to 12 mm which may be reactive. Mild interstitial thickening noted bilaterally and paraseptal emphysema. 5 mm nodule LEFT apex, stable since 04/23/2022 . Mild tree-in-bud airspace disease diffusely throughout both lungs. No dense consolidation or pneumo elliot. No pericardial or pleural effusion. Hepatic steatosis. Areas of decreased attenuation in each kidney. Cannot be further evaluated on this examination. Mild LEFT adrenal hyperplasia. IMPRESSION: 1. No pulmonary embolism. 2. Mild diffuse tree-in-bud airspace disease is probably related to mild respiratory bronchiolitis. T here is also paraseptal emphysema. 3. Indeterminate mediastinal and hilar lymph nodes. Probably reactive. 4. Moderate atherosclerosis aorta.
[2023-02-03 12:25] LABS: Alanine Aminotransferase 22 U/L (0-33); Alkaline Phosphatase 99 U/L (35-105); Anion Gap 19.8 (5-19); Aspartate Amino Transferase 24 U/L (0-32); Blood Urea Nitrogen 10 mg/dL (8-23); Calcium 9.5 mg/dL (8.5-10.5); Carbon Dioxide 20 mmol/L (22-29); Chloride 104 mmol/L (98-107); Globulin 3.3 g/dL (1.3-4.6); Glomerular Filtration Rate 50.5 mL/min (90-130); Glucose 161 mg/dL (65-115); Lipase 55 U/L (13-60); NT Pro B Type Natriuretic Pept 36 pg/mL (0-125); Osmolality Calculated 293 mOsm/kg (285-295); Potassium 3.8 mmol/L (3.5-5.1); Sodium 140 mmol/L (136-145); Total Bilirubin 0.5 mg/dL (0.15-1.2); Total Protein 8.3 g/dL (6.6-8.7)
[2023-02-03 12:31] LABS: Influenza A by IFA negative (Negative); Influenza B by IFA negative (Negative)
[2023-02-03 12:32] LABS: SARS Covid-2 Antigen negative (Negative)
[2023-02-03] MEDS: iohexol 350 mg/mL 500 mL Btl (per mL) IV (12:41)
--- NOTE | 2023-02-03 13:21 | ECG_ITS ---
[facility] Test Date: 2023-02-03 Pat Name: Alaina Cano Department: Room: Gender: Female Sql Ssis Developer: : 1960 Requested By: Chayo Montaño Order Number: [id number] Jez MD: Rip Lawton M.D. Measurements Intervals [place] Rate: 74 P: 48 [place]: 168 QRS: -44 QRSD: 90 T: 83 QT: 398 QTc: 442 Interpretive Statements SINUS RHYTHM LEFT AXIS DEVIATION [QRS AXIS < -30] POSSIBLE RIGHT VENTRICULAR CONDUCTION DELAY [RSR (QR) IN V1/V2] Compared to ECG 02/03/2023 11:29:43 No significant changes Electronically Signed On 02-04-2023 0:52:07 [employer] OPERATIONS by Rip Lawton M.D. [email or web address] [email or web address]/store/[id number]
== END 2023-02-03 13:38 | disposition home or self-care (01) ==
PROVIDERS: Emergency Provider Emergency Medicine; PCP Family Medicine
DX: J06.9 Acute upper respiratory infection, unspecified (principal); Z79.4 Long term (current) use of insulin; Z11.52 Encounter for screening for COVID-19; F17.210 Nicotine dependence, cigarettes, uncomplicated; J44.9 Chronic obstructive pulmonary disease, unspecified; E11.9 Type 2 diabetes mellitus without complications
CPT/HCPCS: 36415; 71045; 71275; 80053; 83690; 83880; 84484; 85025; 85378; 85610; 87040; 87426; 87804; 93005; 96374; 99285; J1100; Q9967

== ENCOUNTER 2023-03-19 09:21 | Outpatient (CLI) | payer MEDICARE, MEDICAID, SELFPAY ==
--- NOTE | 2023-03-19 09:30 | USCV_ITS ---
Alaina Cano Age: 62 Gender: F : 1960 Exam Date: 03/19/2023 09:40 Ordering Phys: Dominguez Jo MD (Andy) ([email or web address] [place] Technologist: Vasu Mcginnis [place] [facility] [place]ication: AAA HISTORY: Diameter (cm) AP x Transverse x Length Velocity (cm/s) Waveform Prox Aorta: 2.87 x 2.46 x 48.80 Mid Aorta: 3.56 x 4.42 x 5.04 92.50 Distal Aorta: 3.74 x 3.81 x 70.20 Right Iliac Prox: 2.10 x 2.17 x 105.80 Left Iliac Prox: 1.68 x 2.14 x 109.90 Stent Prox Landing x x Aneurysmal Sac Max x x Lt Lat Sac Dim Rt Lat Sac Dim Stent Dist Landing x x Right Iliac Stent x x Left Iliac Stent x x Right Renal Art Left Renal Art FINDINGS: comp 09/08/22 CONCLUSIONS Mid and Distal AAA measuring 3.5 x 4.4cm in maximum dimension. This is stable compared to previous. Normal common iliac arteries Joel Leiva MD (Electronically Signed) Final Date: 19 March 2023 16:49 S
== END 2023-03-19 09:22 | disposition home or self-care (01) ==
LOC: RAD 09:21
PROVIDERS: PCP Family Medicine; Visit Provider Thoracic Surgery (Cardiothoracic Vascular Surgery)
DX: I71.40 Abdominal aortic aneurysm, without rupture, unspecified (principal)
CPT/HCPCS: 93978

== ENCOUNTER → 2023-04-06 09:06 | Outpatient (BNVA) | payer OTHER, MEDICAID, SELFPAY | PROVIDERS: PCP Family Medicine; Referring Provider Family Medicine; Visit Provider Surgery | DX: K63.2 Fistula of intestine (principal) | CPT/HCPCS: 99214 ==

== ENCOUNTER → 2023-04-15 12:53 | Outpatient (BNVA) | payer MEDICARE, MEDICAID, SELFPAY | PROVIDERS: PCP Family Medicine; Visit Provider Thoracic Surgery (Cardiothoracic Vascular Surgery) | DX: I71.40 Abdominal aortic aneurysm, without rupture, unspecified (principal) | CPT/HCPCS: 99213 ==

== ENCOUNTER → 2023-05-13 10:21 | Outpatient (BNVA) | payer MEDICARE, MEDICAID, SELFPAY | PROVIDERS: PCP Family Medicine; Visit Provider Internal Medicine | DX: E11.65 Type 2 diabetes mellitus with hyperglycemia (principal); E11.40 Type 2 diabetes mellitus with diabetic neuropathy, unspecified; E03.9 Hypothyroidism, unspecified; E78.1 Pure hyperglyceridemia; K76.0 Fatty (change of) liver, not elsewhere classified; Z79.4 Long term (current) use of insulin; Z79.890 Hormone replacement therapy; Z79.899 Other long term (current) drug therapy | CPT/HCPCS: 36415; 80053; 80061; 82044; 83036; 84439; 84443; 99214 ==

== ENCOUNTER 2023-06-24 07:56 | Outpatient (CLI) | payer MEDICARE, MEDICAID, SELFPAY ==
--- NOTE | 2023-06-24 08:00 | CT_ITS ---
WS: [id number] CT HEAD NONCONTRAST HISTORY: acute memory changes TECHNIQUE: Contiguous axial imaging performed through the brain in 2.5 mm imaging. Bone and soft tiss ue windows. Sagittal and coronal reformats reviewed. All CT scans at [facility] use at least one of these dose optimization techniques: automated exposure control; mA and/or kV adjustment per pa tient size (includes targeted exams where dose is matched to clinical indication); or iterative recon struction. DLP: 1103.88 mGy.cm COMPARISON: 02/02/2023 No acute intracranial hemorrhage, midline shift or mass effect. Mild atrophy and small vessel ischemic disease. Small prior lacunar infarct RIGHT external capsule. P rior lacunar infarct RIGHT frontal lobe adjacent to the anterior horn of the lateral ventricle. Ventricles: Normal size with no hydrocephalus. No inferior displacement of the cerebellar tonsils. Paranasal sinuses: As visualized are clear. Mastoid air cells: Well pneumatized. Cerumen in the external auditory canals. Calvarium and scalp: Skull is intact with no soft tissue edema or swelling. IMPRESSION: 1. No acute intracranial hemorrhage or edema. 2. Mild atrophy and small vessel ischemic disease with a few small lacunar infarcts. 3. If symptoms persist consider MRI the brain with and without contrast.
== END 2023-06-24 07:57 | disposition home or self-care (01) ==
LOC: RAD 07:56
PROVIDERS: PCP Family Medicine; Visit Provider Family Medicine
DX: R41.3 Other amnesia (principal)
CPT/HCPCS: 70450

== ENCOUNTER 2023-09-11 06:37 | Emergency (ER) | payer MEDICARE, MEDICAID, SELFPAY ==
--- NOTE | 2023-09-11 06:53 | XRR_ITS ---
PROCEDURE INFORMATION: Exam: XR Right Foot Exam date and time: 09/11/2023 7:21 AM Age: 63 years old Clinical indication: Injury or trauma; Fall; Blunt trauma; Foot; Right; Additional info: Pain TECHNIQUE: Imaging protocol: Radiologic exam of the right foot. Views: 3 or more views. COMPARISON: CR XR knee RT 4V [id number] 09/19/2018 4:20 PM FINDINGS: Bones/joints: There are acute, transversely oriented mildly displaced fractures of the proximal 3rd and 4th metatarsal bones and a nondisplaced fracture of the proximal 2nd metatarsal bone. There is no significant tarsometatarsal malalignment. There are degenerative changes of the talonavicular joint and 1st metatarsophalangeal joint. There is calcaneal spurring. Soft tissues: Normal. XR/XR foot RT min 3V* [id number] IMPRESSION: Acute mildly displaced fractures of the proximal 3rd and 4th metatarsal bones and nondisplaced fracture of the proximal 2nd metatarsal bone
[2023-09-11 06:55] VITALS: BP 168/109; PULSE 74; RESP 17; TEMP 36.4; O2SAT 97
--- NOTE | 2023-09-11 07:01 | W.ED.LOWEXIN ---
HPI - Extremity Injury (Lower) General: Chief Complaint: Extremity Injury, Lower Stated Complaint: Right foot pain Time Seen by Provider: 09/11/23 06:51 Source: patient Mode of arrival: ambulatory History of Present Illness: 61-year-old female presents to the emergency room with complaints of right foot pain she states she felt like her knee gave way and then she hurt her foot this was several days ago. She continues to walk on it she is not had any other injury denies fever sweats or chills. She is diabetic. She smokes regularly. She admits to having sores on both feet on the right foot she has sores at the lateral and medial MTP joints. MD complaint: foot injury Onset (ago): week(s) (1) Place: home Severity: mild Relieving factors: nothing Exacerbating factors: weight bearing Context: fall PFSH ED PFSH: Medical History Diverticulitis Poorly controlled type 2 diabetes mellitus COPD (chronic obstructive pulmonary disease) Diabetes mellitus Cervical stenosis of spine Lumbar back pain Cervicogenic headache Opioid contract exists Spondylosis without myelopathy or radiculopathy, cervical region Lumbar spine pain Current every day smoker Surgical History History of partial colectomy H/O section H/O ventral hernia repair H/O: hysterectomy Family History Sister Cancer Mother Diverticulitis Depression Other CAD (coronary artery disease) Congestive heart failure (CHF) Diabetes Social History Smoking and tobacco/nicotine status: current every day tobacco/nicotine user cigarettes Packs smoked per day: 1 Years cigarettes smoked: 48 [ Other cigarette details: 1PPD, 49PY] Alcohol intake: former Substance/Drug Use: never Adopted: No Caregiver/support person: No Lives independently: Yes Household members: none Marital status: Number of children: 2 Current occupational status: disabled [place]/Episcopalian: None Special juana needs: No Agree to transfusion: Yes Physical Exam Const: COMMON NORMALS: no acute distress GENERAL APPEARANCE: cooperative and comfortable ORIENTATION/CONSCIOUSNESS: Yes awake, Yes oriented to person, Yes oriented to place and Yes oriented to time HENMT: COMMON NORMALS: normocephalic, atraumatic and hearing grossly normal bilaterally HEAD & SCALP: normocephalic and atraumatic Extremity: OTHER: Moderate swelling to the dorsum of the right foot no active bleeding dorsalis pedis and posterior tibialis pulses palpable dry eschars with diabetic ulcers at the MTP P joints both medially and laterally no active drainage. Neuro: SENSORIUM/ORIENTATION: Yes oriented to person, Yes oriented to place and Yes oriented to time Skin: COMMON NORMALS: no rashes or lesions noted GENERAL SKIN EXAM: no rashes or lesions noted Course Vital Signs: Vital signs: Vital Signs Temperature 97.6 F 09/11/23 06:55 Pulse Rate 74 09/11/23 06:55 Respiratory Rate 17 09/11/23 06:55 Blood Pressure 168/109 09/11/23 06:55 Pulse Oximetry 97 09/11/23 06:55 Oxygen Delivery Me thod Room Air 09/11/23 06:55 MDM - Extremity Injury (Lower) Medical Decision Making Fractures of second third and fourth proximal metatarsal. Second is mildly displaced. Patient is a smoker. Arterial Doppler patient has good flow to her leg. Will start on doxycycline put her in a posterior splint and nonweightbearing with crutches. Discussed with Dr. Long will set her up to see Dr. Faust next week. Medical Records I reviewed the patient's medical records. Lab Data I reviewed the patient's lab results. 09/11/23 07:49 09/11/23 07:49 Radiology Impressions Foot X-Ray 09/11/23 06:53 IMPRESSION: Acute mildly displaced fractures of the proximal 3rd and 4th metatarsal bones and nondisplaced fracture of the proximal 2nd metatarsal bone Duplex Scan Lower Extremity Artery 09/11/23 07:06 IMPRESSION: No hemodynamically significant stenosis or occlusion. Laboratory Results WBC 9.61 10^3/uL (3.29-11.43) 09/11/23 07:49 RBC 5.15 10^6/uL (3.85-5.65) 09/11/23 07:49 Hgb 12.40 g/dL (11.27-16.99) 09/11/23 07:49 Hct 40.4 % (36-47) 09/11/23 07:49 MCV 78.4 fl (85-98) L 09/11/23 07:49 MCH 24.1 pg (27-33) L 09/11/23 07:49 MCHC 30.7 g/dL (30-55) 09/11/23 07:49 RDW 21.2 % (12.1-15.1) H 09/11/23 07:49 Plt Count 452 10^3/cmm (157-399) H 09/11/23 07:49 MPV 9.4 fL (7.4-10.4) 09/11/23 07:49 Neut % (Auto) 68.1 % 09/11/23 07:49 Lymph % (Auto) 21.9 % 09/11/23 07:49 [place] % (Auto) 6.0 % 09/11/23 07:49 Eos % (Auto) 1.9 % 09/11/23 07:49 Baso % (Auto) 1.5 % 09/11/23 07:49 Neut # (Auto) 6.55 10^3/uL (1.8-7.7) 09/11/23 07:49 Lymph # (Auto) 2.1 10^3/uL (0.8-4.8) 09/11/23 07:49 [place] # (Auto) 0.6 10^3/uL (0.2-0.9) 09/11/23 07:49 Eos # (Auto) 0.2 10^3/uL (0.0-0.8) 09/11/23 07:49 Baso # (Auto) 0.1 10^3/uL (0.0-0.1) 09/11/23 07:49 Nucleated RBC % (auto) 0 % 09/11/23 07:49 Nucleated RBCs # 0.0 /100WBC 09/11/23 07:49 ESR 50 mm/hr (0-15) H 09/11/23 07:49 Sodium 142 mmol/L (136-145) 09/11/23 07:49 Potassium 3.6 mmol/L (3.5-5.1) 09/11/23 07:49 Chloride 102 mmol/L (98-107) 09/11/23 07:49 Carbon Dioxide 25 mmol/L (22-29) 09/11/23 07:49 Anion Gap 18.6 (5-19) 09/11/23 07:49 BUN 9 mg/dL (8-23) 09/11/23 07:49 Creatinine 1.1 mg/dL (0.5-0.9) H 09/11/23 07:49 GFR Calculation 50.3 mL/min (90-130) L 09/11/23 07:49 Glucose 171 mg/dL (65-115) H 09/11/23 07:49 Calculated Osmolality 297 mOsm/kg (285-295) H 09/11/23 07:49 Calcium 9.0 mg/dL (8.5-10.5) 09/11/23 07:49 Total Bilirubin 0.4 mg/dL (0.15-1.2) 09/11/23 07:49 AST 25 U/L (0-32) 09/11/23 07:49 ALT 15 U/L (0-33) 09/11/23 07:49 Alkaline Phosphatase 83 U/L (35-105) 09/11/23 07:49 Total Protein 8.5 g/dL (6.6-8.7) 09/11/23 07:49 Albumin 4.6 g/dL (3.5-5.2) 09/11/23 07:49 Globulin 3.9 g/dL (1.3-4.6) 09/11/23 07:49 All radiology interpretation(s) finalized by discharge Discharge Plan Discharge Patient Disposition: Home Clinical Impression: Fracture of metatarsal bone of right foot, Diabetic foot ulcer Condition: Stable Prescriptions: New doxycycline hyclate 100 mg capsule 100 mg PO BID 10 Days Qty: 20 0RF tramadol 50 mg tablet 50 mg PO Q8H PRN (Reason: pain) Qty: 14 0RF No Action lisinopril 40 mg tablet 40 mg PO QAM amlodipine 10 mg tablet 10 mg PO DAILY pantoprazole [Protonix] 40 mg tablet,delayed release (DR/EC) 40 mg PO QAM (DME) FreeStyle Daria 2 [place] Misc See Rx Instructions .Route Qty: 1 0RF Rx Instructions: Check BS 4-6 times a day. atorvastatin 40 mg tablet 40 mg PO BEDTIME tizanidine 4 mg tablet 4 mg PO QID PRN (Reason: muscle spasticity) 90 Days Qty: 360 0RF propranolol 20 mg tablet 20 mg PO BID Qty: 180 1RF sumatriptan succinate 25 mg tablet See Rx Instructions PO .COMPLEX Qty: 30 0RF Rx Instructions: take 1 tab at onset of headache; if no relief may repeat 1 tab after at least 2 hrs; max = 4 tabs/24 hr PO (DME) FreeStyle Daria 2 Sensor Kit See Rx Instructions .Route Qty: 3 3RF Rx Instructions: Change every 14 days. (DME) FreeStyle Test Strip See Rx Instructions .Route Qty: 100 2RF Rx Instructions: As directed ([facility] [place]) Custom Molded Othotics See Rx Instructions .Route .MEDSUPPLY Qty: 1 0RF Rx Instructions: As directed by [facility] oxycodone 15 mg tablet 15 mg PO BID 30 Days Qty: 46 0RF (DME) pen needle, diabetic [BD Amada 2nd Gen Pen Needle] 32 gauge x 5/32 needle See Rx Instructions .ROUTE .COMPLEX Qty: 100 0RF Dose Instruction: CHECK BLOOD SUGAR FOUR TIMES DAILY Rx Instructions: CHECK BLOOD SUGAR FOUR TIMES DAILY pioglitazone 30 mg tablet See Rx Instructions .ROUTE .COMPLEX Qty: 30 2RF Dose Instruction: TAKE 1 TABLET BY MOUTH DAILY Rx Instructions: TAKE 1 TABLET BY MOUTH DAILY gabapentin 300 mg capsule See Rx Instructions .ROUTE .COMPLEX Qty: 180 0RF Dose Instruction: TAKE 1 CAPSULE BY MOUTH TWICE DAILY Rx Instructions: TAKE 1 CAPSULE BY MOUTH TWICE DAILY levothyroxine 137 mcg tablet See Rx Instructions .ROUTE .COMPLEX Qty: 60 0RF Dose Instruction: TAKE 1 TABLET BY MOUTH EVERY MORNING Rx Instructions: TAKE 1 TABLET BY MOUTH EVERY MORNING donepezil 5 mg tablet See Rx Instructions .ROUTE .COMPLEX Qty: 90 0RF Dose Instruction: TAKE 1 TABLET BY MOUTH DAILY Rx Instructions: TAKE 1 TABLET BY MOUTH DAILY quetiapine [Seroquel] 50 mg tablet 50 mg PO DAILY Qty: 60 1RF insulin lispro [Humalog KwikPen Insulin] 100 unit/mL insulin pen See Rx Instructions .ROUTE .COMPLEX Qty: 30 3RF Dose Instruction: ADMINISTER 20 UNITS UNDER THE SKIN THREE TIMES DAILY Rx Instructions: ADMINISTER 20 UNITS UNDER THE SKIN THREE TIMES DAILY icosapent ethyl [Vascepa] 1 gram capsule See Rx Instructions .ROUTE .COMPLEX Qty: 360 0RF Dose Instruction: TAKE 2 CAPSULES BY MOUTH TWICE DAILY Rx Instructions: TAKE 2 CAPSULES BY MOUTH TWICE DAILY escitalopram oxalate 20 mg tablet 20 mg PO QAM Qty: 30 0RF Lantus Solostar U-100 Insulin 100 unit/mL (3 mL) insulin pen See Rx Instructions .ROUTE .COMPLEX Qty: 45 0RF Dose Instruction: ADMINISTER 72 UNITS UNDER THE SKIN DAILY Rx Instructions: ADMINISTER 72 UNITS UNDER THE SKIN DAILY latanoprost 0.005 % drops 1 drp ophthalmic (eye) QPM venlafaxine 150 mg capsule,extended release 24hr 150 mg PO QAM Wixela Inhub 250-50 mcg/dose blister with device 1 inh inhalation Q12H Rx Instructions: ext shows last filled 05/10/22 Ventolin HFA 90 mcg/actuation HFA aerosol inhaler 2 - 4 puff INHALATION QID PRN (Reason: Shortness Of Breath) ibuprofen 200 mg Tablet 400 mg PO Q6H PRN (Reason: Pain) ondansetron 4 mg tablet,disintegrating 4 mg PO Q6H PRN (Reason: nausea and vomiting) Qty: 14 0RF Discharge Orders: Discharge ED (Routine); Ordered 09/11/23 Ordered By: Nish Silver Referrals: Jose Alvarenga MD [Primary Care Provider] - Discharge Diet: Diabetic Discharge Activity: Limit activity as instructed Patient Instructions: Opioid Safety, Pain Management Activity Restrictions/Additional Instructions: Thank you for choosing [facility] for your healthcare needs today. It is very important that you follow up as instructed or that you return to the Emergency Department should you have concerns or if your condition changes or worsens in any way. You were seen today for foot pain. You have fractures of your proximal second third and fourth metatarsal in your right foot. You should not bear any weight on this foot recommend you keep the splint in place to be nonweightbearing and use crutches to ambulate. Additionally you have diabetic foot ulcers that are very concerning. You are given antibiotics for these 1 pill twice a day for 10 days. enrollment management manager will make arrangements for you to see podiatry and wound care. Return to the emergency room if develop fever or further problems. 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
--- NOTE | 2023-09-11 07:06 | USR_ITS ---
PROCEDURE INFORMATION: Exam: US Duplex Right Lower Extremity Arteries Or Arterial Bypass Grafts Exam date and time: 09/11/2023 7:22 AM Age: 63 years old Clinical indication: Other: Lower extremity infection, diabetic foot ulcer TECHNIQUE: Imaging protocol: Right Real-time duplex scan of the arteries or arterial bypass grafts of the right lower extremity with 2-D newby scale, color Doppler flow and spectral waveform analysis. Images documented and saved. COMPARISON: CT angio abdomen pelvis [id number] 10/08/2022 2:21 PM FINDINGS: Right common femoral artery: No occlusion or significant stenosis. Normal waveform. No pseudoaneurysm in the inguinal region. Right superficial femoral artery: No occlusion or significant stenosis. Normal waveform. Right popliteal artery: No occlusion or significant stenosis. Normal waveform. Right calf/foot arteries: No occlusion or significant stenosis in the visualized arteries. Normal waveforms. Dorsalis pedis artery is patent. Soft tissues: No hematoma or [place]. US/[place] [id number] IMPRESSION: No hemodynamically significant stenosis or occlusion.
[2023-09-11 08:33] LABS: Basophils # 0.1 10^3/uL (0.0-0.1); Basophils % 1.5 %; Eosinophils # 0.2 10^3/uL (0.0-0.8); Eosinophils % 1.9 %; Hematocrit 40.4 % (36-47); Lymphocytes # 2.1 10^3/uL (0.8-4.8); Lymphocytes % 21.9 %; Mean Corpuscular HGB Conc 30.7 g/dL (30-55); Mean Corpuscular Hemoglobin 24.1 pg (27-33); Mean Corpuscular Volume 78.4 fl (85-98); Mean Platelet Volume 9.4 fL (7.4-10.4); Monocytes # 0.6 10^3/uL (0.2-0.9); Neutrophils # 6.55 10^3/uL (1.8-7.7); Neutrophils % 68.1 %; Nucleated Red Blood Cells % 0 %; Platelet Count 452 10^3/cmm (157-399); Red Blood Count 5.15 10^6/uL (3.85-5.65); Red Cell Distribution Width 21.2 % (12.1-15.1); White Blood Count 9.61 10^3/uL (3.29-11.43)
[2023-09-11] MEDS: HYDROcodone-acetaminophen 5-325 mg Tablet 1 TAB PO (08:47)
[2023-09-11 08:54] LABS: Erythrocyte Sedimentation Rate 50 mm/hr (0-15)
[2023-09-11 08:56] LABS: Alanine Aminotransferase 15 U/L (0-33); Albumin Level 4.6 g/dL (3.5-5.2); Alkaline Phosphatase 83 U/L (35-105); Anion Gap 18.6 (5-19); Aspartate Amino Transferase 25 U/L (0-32); Blood Urea Nitrogen 9 mg/dL (8-23); Carbon Dioxide 25 mmol/L (22-29); Chloride 102 mmol/L (98-107); Globulin 3.9 g/dL (1.3-4.6); Glomerular Filtration Rate 50.3 mL/min (90-130); Glucose 171 mg/dL (65-115); Osmolality Calculated 297 mOsm/kg (285-295); Potassium 3.6 mmol/L (3.5-5.1); Sodium 142 mmol/L (136-145); Total Bilirubin 0.4 mg/dL (0.15-1.2); Total Protein 8.5 g/dL (6.6-8.7)
[2023-09-11 08:57] LABS: Creatinine Clr Calc Pharmacy 55.5731
== END 2023-09-11 09:37 | disposition home or self-care (01) ==
PROVIDERS: Emergency Provider Family Medicine; PCP Family Medicine
DX: S92.331A Displaced fracture of third metatarsal bone, right foot, initial encounter for closed fracture (principal); S92.341A Displaced fracture of fourth metatarsal bone, right foot, initial encounter for closed fracture; S92.324A Nondisplaced fracture of second metatarsal bone, right foot, initial encounter for closed fracture; Z79.4 Long term (current) use of insulin; F17.210 Nicotine dependence, cigarettes, uncomplicated; J44.9 Chronic obstructive pulmonary disease, unspecified; E11.621 Type 2 diabetes mellitus with foot ulcer; L97.519 Non-pressure chronic ulcer of other part of right foot with unspecified severity; W19.XXXA Unspecified fall, initial encounter
CPT/HCPCS: 36415; 73630; 80053; 85025; 85651; 87040; 93926; 99284; E0114

== ENCOUNTER 2023-09-14 08:16 | Outpatient (CLI) | payer MEDICARE, MEDICAID, SELFPAY ==
--- NOTE | 2023-09-14 08:00 | USCV_ITS ---
Alaina Cano Age: 63 Gender: F : 1960 Exam Date: 09/14/2023 08:25 Ordering Phys: Dominguez Jo MD (Andy) ([email or web address]) Technologist: CT Exam Location: [facility] [place] Indication: aaa HISTORY: Diameter (cm) AP x Transverse x Length Velocity (cm/s) Waveform Prox Aorta: 2.40 x 2.20 x 42.30 Mid Aorta: 2.30 x 2.40 x 47.10 Distal Aorta: 4.30 x 4.60 x 63.50 Right Iliac Prox: 1.10 x 1.00 x 94.60 Left Iliac Prox: 0.88 x 1.20 x 108.10 Stent Prox Landing x x Aneurysmal Sac Max x x Lt Lat Sac Dim Rt Lat Sac Dim Stent Dist Landing x x Right Iliac Stent x x Left Iliac Stent x x Right Renal Art Left Renal Art FINDINGS: Comparison:. 03/19/23 A complete assessment of the abdominal aorta was not possible. Limited ultrasound evaluation of intraluminal content due to poor imaging technique. Abdominal aortic aneurysm is noted with a maximal diameter of 4.6 cm. No change since the prior exam of size. There is evidence of atherosclerotic plaque no significan stenosis in the right common iliac artery. There is evidence of atherosclerotic plaque no significan stenosis in the left common iliac artery. CONCLUSIONS Technicaly suboptimal exam. Size of the AAA is unchanged since the prior exam. Maximum diameter of 4.[address] Светлана Berg DO (Electronically Signed) Final Date: 14 September 2023 13:54 S
== END 2023-09-14 08:17 | disposition home or self-care (01) ==
LOC: RAD 08:16
PROVIDERS: PCP Family Medicine; Visit Provider Thoracic Surgery (Cardiothoracic Vascular Surgery)
DX: I71.40 Abdominal aortic aneurysm, without rupture, unspecified (principal)
CPT/HCPCS: 93978

== ENCOUNTER 2023-09-25 13:54 | Emergency (ER) | payer MEDICARE, MEDICAID, SELFPAY ==
[2023-09-25 14:00] VITALS: BP 86/53; PULSE 78; RESP 18; TEMP 36.9; O2SAT 93
--- NOTE | 2023-09-25 14:34 | XRR_ITS ---
PROCEDURE INFORMATION: Exam: XR Left Elbow Exam date and time: 09/25/2023 2:46 PM Age: 63 years old Clinical indication: Pain; Elbow; Left TECHNIQUE: Imaging protocol: Radiologic exam of the left elbow. Views: 3 or more views. COMPARISON: No relevant prior studies available. FINDINGS: Bones/joints: Normal. Soft tissues: Normal. XR/XR elbow LT min 3V* [id number] IMPRESSION: No acute findings.
--- NOTE | 2023-09-25 14:35 | W.ED.EXTPRO ---
HPI - Extremity Problem General: Chief complaint: Extremity Problem,Nontraumatic Stated complaint: LEFT ELBOW PAIN Time Seen by Provider: 09/25/23 14:34 Source: patient Mode of arrival: ambulatory History of Present Illness: 63-year-old female who presents to the emergency room with left shoulder pain no history of any trauma falls or injury no previous injuries shoulder just began hurting earlier today and progressively worsened as the day went on. She is recalling do any heavy lifting or unusual activity no falls or direct blow to the area. No numbness or tingling in the hand MD Complaint: joint pain Onset (ago): day(s) Pain Consistency: constant Location: left (Shoulder) Associated symptoms: Reports arthralgias; Deny chest pain, fever(s), myalgias, rash or short of breath Review of Systems Const: Denies: fever(s) or chills Card: Denies: chest pain Resp: Denies: dyspnea GI: Denies: abdominal pain Musc: Reports: joint pain (Left shoulder); Denies: neck pain or back pain Skin/Breast: Denies: rash PFSH ED PFSH: Medical History Diverticulitis Poorly controlled type 2 diabetes mellitus COPD (chronic obstructive pulmonary disease) Diabetes mellitus Cervical stenosis of spine Lumbar back pain Cervicogenic headache Opioid contract exists Spondylosis without myelopathy or radiculopathy, cervical region Lumbar spine pain Current every day smoker Surgical History History of partial colectomy H/O section H/O ventral hernia repair H/O: hysterectomy Family History Sister Cancer Mother Diverticulitis Depression Other CAD (coronary artery disease) Congestive heart failure (CHF) Diabetes Social History Smoking and tobacco/nicotine status: current every day tobacco/nicotine user cigarettes Packs smoked per day: 1 Years cigarettes smoked: 48 [ Other cigarette details: 1PPD, 49PY] Alcohol intake: former Substance/Drug Use: never Adopted: No Caregiver/support person: No Lives independently: Yes Household members: none Marital status: Number of children: 2 Current occupational status: disabled Juana/Yarsani: None Special juana needs: No Agree to transfusion: Yes Physical Exam Const: GENERAL APPEARANCE: cooperative and comfortable ORIENTATION/CONSCIOUSNESS: Yes awake, Yes oriented to person, Yes oriented to place and Yes oriented to time HENMT: COMMON NORMALS: normocephalic, atraumatic and hearing grossly normal bilaterally HEAD & SCALP: normocephalic and atraumatic Resp: COMMON NORMALS: normal respiratory effort, No retractions, No use of accessory muscles and clear to auscultation bilaterally AUSCULTATION: clear to auscultation bilaterally Cardio: COMMON NORMALS: regular rate, regular rhythm and No murmurs present (Cardio) RATE: regular rate RHYTHM: regular rhythm Extremity: COMMON NORMALS: normal to inspection, capillary refill normal, no clubbing, cyanosis or edema, no calf tenderness and no pedal edema OTHER: Examination of the left arm. No pain or deformity neurovascularly intact no pain at the wrist or elbow with passive range of motion pain at the shoulder with abduction increased with abduction and internal rotation noted significant discomfort with external rotation while AB ducted. Neuro: SENSORIUM/ORIENTATION: Yes oriented to person, Yes oriented to place and Yes oriented to time Skin: COMMON NORMALS: no rashes or lesions noted GENERAL SKIN EXAM: no rashes or lesions noted Course Vital Signs: Vital signs: Vital Signs Temperature 98.4 F 09/25/23 14:00 Pulse Rate 78 09/25/23 14:00 Respiratory Rate 18 09/25/23 14:00 Blood Pressure 86/53 09/25/23 14:00 Pulse Oximetry 93 09/25/23 14:00 Oxygen Delivery Me thod Room Air 09/25/23 14:00 MDM - Extremity (Nontraumatic) Medical Decision Making Pain is reproducible with manipulation of the shoulder particular with internal rotation. No pain really noted at the elbow. X-rays did not show anything acute. There is no trauma by history per the patient. Will discharge patient home in arm sling diclofenac to use as needed. No use of the left arm follow-up with orthopedics Medical Records I reviewed the patient's medical records. Lab Data I reviewed the patient's lab results. Radiology Impressions Elbow X-Ray 09/25/23 14:34 IMPRESSION: No acute findings. Shoulder X-Ray 09/25/23 14:46 IMPRESSION: No acute findings. XR interpretation done by ED provider, pending radiology final review Discharge Plan Discharge Patient Disposition: Home Clinical Impression: Acute shoulder pain Condition: Stable Prescriptions: New diclofenac sodium 75 mg tablet,delayed release (DR/EC) 75 mg PO Q12H PRN (Reason: pain) Qty: 20 0RF No Action lisinopril 40 mg tablet 40 mg PO QAM amlodipine 10 mg tablet 10 mg PO DAILY pantoprazole [Protonix] 40 mg tablet,delayed release (DR/EC) 40 mg PO QAM (DME) FreeStyle Daria 2 Dawson Misc See Rx Instructions .Route Qty: 1 0RF Rx Instructions: Check BS 4-6 times a day. atorvastatin 40 mg tablet 40 mg PO BEDTIME tizanidine 4 mg tablet 4 mg PO QID PRN (Reason: muscle spasticity) 90 Days Qty: 360 0RF propranolol 20 mg tablet 20 mg PO BID Qty: 180 1RF sumatriptan succinate 25 mg tablet See Rx Instructions PO .COMPLEX Qty: 30 0RF Rx Instructions: take 1 tab at onset of headache; if no relief may repeat 1 tab after at least 2 hrs; max = 4 tabs/24 hr PO (DME) FreeStyle Daria 2 Sensor Kit See Rx Instructions .Route Qty: 3 3RF Rx Instructions: Change every 14 days. (DME) FreeStyle Test Strip See Rx Instructions .Route Qty: 100 2RF Rx Instructions: [place] [place] Custom Molded Othotics See Rx Instructions .Route .MEDSUPPLY Qty: 1 0RF Rx Instructions: As directed by [facility] oxycodone 15 mg tablet 15 mg PO BID 30 Days Qty: 46 0RF (DME) pen needle, diabetic [BD Amada 2nd Gen Pen Needle] 32 gauge x 5/32 needle See Rx Instructions .ROUTE .COMPLEX Qty: 100 0RF Dose Instruction: CHECK BLOOD SUGAR FOUR TIMES DAILY Rx Instructions: CHECK BLOOD SUGAR FOUR TIMES DAILY pioglitazone 30 mg tablet See Rx Instructions .ROUTE .COMPLEX Qty: 30 2RF Dose Instruction: TAKE 1 TABLET BY MOUTH DAILY Rx Instructions: TAKE 1 TABLET BY MOUTH DAILY gabapentin 300 mg capsule See Rx Instructions .ROUTE .COMPLEX Qty: 180 0RF Dose Instruction: TAKE 1 CAPSULE BY MOUTH TWICE DAILY Rx Instructions: TAKE 1 CAPSULE BY MOUTH TWICE DAILY levothyroxine 137 mcg tablet See Rx Instructions .ROUTE .COMPLEX Qty: 60 0RF Dose Instruction: TAKE 1 TABLET BY MOUTH EVERY MORNING Rx Instructions: TAKE 1 TABLET BY MOUTH EVERY MORNING donepezil 5 mg tablet See Rx Instructions .ROUTE .COMPLEX Qty: 90 0RF Dose Instruction: TAKE 1 TABLET BY MOUTH DAILY Rx Instructions: TAKE 1 TABLET BY MOUTH DAILY quetiapine [Seroquel] 50 mg tablet 50 mg PO DAILY Qty: 60 1RF insulin lispro [Humalog KwikPen Insulin] 100 unit/mL insulin pen See Rx Instructions .ROUTE .COMPLEX Qty: 30 3RF Dose Instruction: ADMINISTER 20 UNITS UNDER THE SKIN THREE TIMES DAILY Rx Instructions: ADMINISTER 20 UNITS UNDER THE SKIN THREE TIMES DAILY icosapent ethyl [Vascepa] 1 gram capsule See Rx Instructions .ROUTE .COMPLEX Qty: 360 0RF Dose Instruction: TAKE 2 CAPSULES BY MOUTH TWICE DAILY Rx Instructions: TAKE 2 CAPSULES BY MOUTH TWICE DAILY escitalopram oxalate 20 mg tablet 20 mg PO QAM Qty: 30 0RF Lantus Solostar U-100 Insulin 100 unit/mL (3 mL) insulin pen See Rx Instructions .ROUTE .COMPLEX Qty: 45 0RF Dose Instruction: ADMINISTER 72 UNITS UNDER THE SKIN DAILY Rx Instructions: ADMINISTER 72 UNITS UNDER THE SKIN DAILY tramadol 50 mg tablet 50 mg PO Q8H PRN (Reason: pain) Qty: 14 0RF latanoprost 0.005 % drops 1 drp ophthalmic (eye) QPM venlafaxine 150 mg capsule,extended release 24hr 150 mg PO QAM Wixela Inhub 250-50 mcg/dose blister with device 1 inh inhalation Q12H Rx Instructions: ext shows last filled 05/10/22 Ventolin HFA 90 mcg/actuation HFA aerosol inhaler 2 - 4 puff INHALATION QID PRN (Reason: Shortness Of Breath) ibuprofen 200 mg Tablet 400 mg PO Q6H PRN (Reason: Pain) ondansetron 4 mg tablet,disintegrating 4 mg PO Q6H PRN (Reason: nausea and vomiting) Qty: 14 0RF Discharge Orders: Discharge ED (Routine); Ordered 09/25/23 Ordered By: Nish Silver Referrals: Jose Alvarenga MD [Primary Care Provider] - Discharge Diet: Usual diet Discharge Activity: Limit activity as instructed Patient Instructions: Opioid Safety, Pain Management Activity Restrictions/Additional Instructions: Thank you for choosing [facility] for your healthcare needs today. It is very important that you follow up as instructed or that you return to the Emergency Department should you have concerns or if your condition changes or worsens in any way. You were seen today with complaints of left shoulder pain. X-rays did not show any acute fracture recommend a arm sling and using diclofenac 1 every 12 hours as needed for the discomfort. Avoid any use of the left arm. Case management make arrangements for you to follow-up with orthopedics. Coding Level of Care Code ED [employer] Worker for [employer] [place]
--- NOTE | 2023-09-25 14:46 | XRR_ITS ---
PROCEDURE INFORMATION: Exam: XR Left Shoulder Exam date and time: 09/25/2023 2:53 PM Age: 63 years old Clinical indication: Pain; Shoulder; Left TECHNIQUE: Imaging protocol: Radiologic exam of the left shoulder. Views: 2 or more views. COMPARISON: CR (UP EXM, ) 09/25/2023 2:46 PM FINDINGS: Bones/joints: Normal. Soft tissues: Normal. XR/XR shoulder LT min 2V* [id number] IMPRESSION: No acute findings.
--- NOTE | 2023-09-25 15:03 | ECG_ITS ---
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 Measurements Intervals [place] Rate: 66 P: 60 SC: 182 QRS: -67 QRSD: 97 T: 112 QT: 403 QTc: 425 Interpretive Statements SINUS RHYTHM LEFT AXIS DEVIATION [QRS AXIS < -30] PATTERN CONSISTENT WITH PULMONARY DISEASE INCOMPLETE RIGHT BUNDLE BRANCH BLOCK [90+ ms QRS DURATION, TERMINAL R IN V1/V2, 40+ ms S IN I/aVL/V4/V5/V6] ABNORMAL QRS-T ANGLE [QRS-T AXIS DIFFERENCE > 60] Compared to ECG 02/03/2023 13:21:22 Incomplete right bundle-branch block now present Electronically Signed On 09-25-2023 19:12:10 CDT by Rip Lawton M.D. [id number]
[2023-09-25] MEDS: ketorolac 30 mg/mL INJ 60 MG IM (15:20)
== END 2023-09-25 15:27 | disposition home or self-care (01) ==
PROVIDERS: Emergency Provider Family Medicine; PCP Family Medicine
DX: M25.512 Pain in left shoulder (principal); Z79.4 Long term (current) use of insulin; E11.9 Type 2 diabetes mellitus without complications; J44.9 Chronic obstructive pulmonary disease, unspecified; F17.210 Nicotine dependence, cigarettes, uncomplicated
CPT/HCPCS: 73030; 73080; 93005; 96372; 99284; J1885

== ENCOUNTER → 2023-11-01 08:04 | Outpatient (BNVA) | payer MEDICARE, MEDICAID, SELFPAY | PROVIDERS: PCP Family Medicine; Visit Provider Internal Medicine | DX: E11.65 Type 2 diabetes mellitus with hyperglycemia; E03.9 Hypothyroidism, unspecified; E11.40 Type 2 diabetes mellitus with diabetic neuropathy, unspecified; E78.1 Pure hyperglyceridemia; K76.0 Fatty (change of) liver, not elsewhere classified; Z79.891 Long term (current) use of opiate analgesic; Z79.4 Long term (current) use of insulin; Z79.890 Hormone replacement therapy | CPT/HCPCS: 99214 ==

== ENCOUNTER 2023-11-24 06:00 | Outpatient (CLI) | payer MEDICARE, MEDICAID, SELFPAY | END 2023-11-24 06:01 | disposition home or self-care (01) | PROVIDERS: PCP Family Medicine; Visit Provider Psychiatry & Neurology Neurology | DX: Z79.891 Long term (current) use of opiate analgesic (principal); R41.3 Other amnesia; L60.3 Nail dystrophy; R91.1 Solitary pulmonary nodule; F17.200 Nicotine dependence, unspecified, uncomplicated; J44.9 Chronic obstructive pulmonary disease, unspecified; F32.9 Major depressive disorder, single episode, unspecified; I95.1 Orthostatic hypotension; E03.9 Hypothyroidism, unspecified; I63.9 Cerebral infarction, unspecified | CPT/HCPCS: 36415; 82306; 82565; 82607; 82746; 83090; 83735; 83921; 85651; 86140; 86160; 86162; 86235; 86255; 86376; 86592 ==

== ENCOUNTER → 2023-11-24 08:00 | Outpatient (BNVA) | payer MEDICARE, MEDICAID, SELFPAY | PROVIDERS: PCP Family Medicine; Referring Provider Family Medicine; Visit Provider Psychiatry & Neurology Neurology | DX: G47.00 Insomnia, unspecified (principal); R41.3 Other amnesia; F32.9 Major depressive disorder, single episode, unspecified; I63.9 Cerebral infarction, unspecified; I95.1 Orthostatic hypotension; J44.9 Chronic obstructive pulmonary disease, unspecified; R91.1 Solitary pulmonary nodule; L60.3 Nail dystrophy; F17.200 Nicotine dependence, unspecified, uncomplicated; E03.9 Hypothyroidism, unspecified; S92.901A Unspecified fracture of right foot, initial encounter for closed fracture; I63.81 Other cerebral infarction due to occlusion or stenosis of small artery; X58.XXXA Exposure to other specified factors, initial encounter | CPT/HCPCS: 99203; 99204 ==

== ENCOUNTER → 2023-12-07 13:58 | Outpatient (BNVA) | payer MEDICARE, MEDICAID, SELFPAY | PROVIDERS: PCP Family Medicine; Visit Provider Podiatrist Foot & Ankle Surgery | DX: M79.671 Pain in right foot (principal); E11.42 Type 2 diabetes mellitus with diabetic polyneuropathy; M19.071 Primary osteoarthritis, right ankle and foot; S92.324A Nondisplaced fracture of second metatarsal bone, right foot, initial encounter for closed fracture; S92.331A Displaced fracture of third metatarsal bone, right foot, initial encounter for closed fracture; S92.341A Displaced fracture of fourth metatarsal bone, right foot, initial encounter for closed fracture; Z79.4 Long term (current) use of insulin; X58.XXXA Exposure to other specified factors, initial encounter | CPT/HCPCS: 73630; 99213 ==

== ENCOUNTER 2023-12-07 16:15 | Outpatient (CLI) | payer MEDICARE, MEDICAID, SELFPAY | END 2023-12-07 16:16 | disposition home or self-care (01) | LOC: SPT 16:16 | PROVIDERS: PCP Family Medicine; Visit Provider Podiatrist Foot & Ankle Surgery | DX: Z46.89 Encounter for fitting and adjustment of other specified devices (principal); S92.343D Displaced fracture of fourth metatarsal bone, unspecified foot, subsequent encounter for fracture with routine healing; S92.333D Displaced fracture of third metatarsal bone, unspecified foot, subsequent encounter for fracture with routine healing; S92.323D Displaced fracture of second metatarsal bone, unspecified foot, subsequent encounter for fracture with routine healing; X58.XXXD Exposure to other specified factors, subsequent encounter | CPT/HCPCS: 97760; L4361 ==

== ENCOUNTER 2023-12-10 12:35 | Outpatient (CLI) | payer MEDICAID, MEDICARE, SELFPAY ==
--- NOTE | 2023-12-10 12:45 | USCV_ITS ---
Alaina Cano Age: 63 Gender: F : 1960 Exam Date: 12/10/2023 13:15 Ordering Phys: Efren Santizo MD Technologist: [place] [facility] [place]: Risk Factors: Previous Vascular Surgery: Right Brachial BP: / Left Brachial BP: / Right Left Velocity (cm/s) Spectral Plaque Velocity (cm/s) Spectral Plaque Syst/Diast Broadening Syst/Diast Broadening 46.60/ 11.60 Prox CCA 47.20 / 9.80 40.60/ 13.60 Mid CCA 46.70 / 13.60 36.20/ 12.70 Distal CCA 32.70 / 12.60 36.80/ 16.00 Prox ICA 47.50 / 18.30 47.90/ 18.20 Mid ICA 51.00 / 21.80 39.10/ 16.70 Distal ICA 43.10 / 18.30 62.40 ECA 71.20 1.30 ICA/CCA 1.60 Antegrade Vertebral Antegrade 18.40/ 6.40 cm/s 48.10/ 7.60 cm/s Bi Subclavian Bi 58.40 72.00 CONCLUSIONS Right ICA stenosis <50%. Mild atheromatous plaque right carotid bulb/ICA. Left ICA stenosis <50%. Mild atheromatous plaque left carotid bulb/ICA. Normal antegrade Doppler flow noted in the right vertebral artery. Normal antegrade Doppler flow noted in the left vertebral artery. Joel Leiva MD (Electronically Signed) Final Date: 10 December 2023 16:02 S
== END 2023-12-10 12:36 | disposition home or self-care (01) ==
LOC: RAD 12:36
PROVIDERS: PCP Family Medicine; Visit Provider Psychiatry & Neurology Neurology
DX: I65.23 Occlusion and stenosis of bilateral carotid arteries (principal); I95.1 Orthostatic hypotension; I63.9 Cerebral infarction, unspecified; J44.9 Chronic obstructive pulmonary disease, unspecified
CPT/HCPCS: 93880

== ENCOUNTER 2023-12-21 10:27 | Outpatient (CLI) | payer MEDICARE, MEDICAID, SELFPAY ==
--- NOTE | 2023-12-21 10:35 | MR_ITS ---
WS: [id number] MRI BRAIN WITH AND WITHOUT CONTRAST HISTORY: G47.00 - Insomnia, unspecified COMPARISON: CT head 06/24/2023 TECHNIQUE: Multiplanar imaging performed through the brain with MultiHance 18 ml's IV. No acute infarcts are seen. Wise-white matter differentiation is well preserved. Mild small vessel is chemic type changes in the subcortical white matter. Small lacunar infarct RIGHT frontal lobe adjacen t to the lateral ventricle. No prior hemorrhage. Mild atrophy. No ventriculomegaly. Abnormal pituitary gland. Sellar mass arises superiorly from the sella turcica. Mass measures 1.5 cm in superior-inferior diameter. 1.2 cm anterior posterior by 1.8 cm transversely. There is a cystic co mponent which does not enhance in the central pituitary mass which extends just to the LEFT of midlin e. The remaining enlarged pituitary gland is hypervascular. Infundibulum is not identified as a separ ate structure. Optic chiasm is being slightly elevated and displaced. Pituitary macroadenoma extends medially to very slightly above the cavernous carotid arteries. Slightly greater encroachment on the LEFT. There is no displacement or obstruction of the carotid arteries. Visualized posterior fossa and brainstem are also normal. No additional masses are identified. No vascular abnormality. Small caliber distal LEFT vertebral art daniel. Normal flow voids. Dural venous sinuses are normal. Paranasal sinuses: Well aerated with no significant disease. Mastoid air cells: Normal. Calvarium and scalp: Normal. MR/MR head wo/w con [id number] IMPRESSION: 1. 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 There are cystic compon ents to the macroadenoma and on the postcontrast imaging the macroadenoma exten ds very close to the carotid arteries and the cavernous sinuses, LEFT greater t greer RIGHT suspicious for invasion. Suggest surveillance imaging concomitant wit h medical therapy to document improvement or progression. Recommend dedicated M RI pituitary gland in 3 months. 2. Very slight elevation of the optic chiasm. 3. Mild atrophy and mild small vessel disease. Small lacunar infarct RIGHT fro ntal lobe.
== END 2023-12-21 10:28 | disposition home or self-care (01) ==
LOC: RAD 12-22 10:28
PROVIDERS: PCP Family Medicine; Visit Provider Psychiatry & Neurology Neurology
DX: D44.3 Neoplasm of uncertain behavior of pituitary gland (principal); G47.00 Insomnia, unspecified; R41.3 Other amnesia
CPT/HCPCS: 70553; A9577

== ENCOUNTER → 2023-12-30 14:02 | Outpatient (BNVA) | payer MEDICARE, MEDICAID, SELFPAY | PROVIDERS: PCP Family Medicine; Visit Provider Podiatrist Foot & Ankle Surgery | DX: S92.323A Displaced fracture of second metatarsal bone, unspecified foot, initial encounter for closed fracture (principal); S92.333A Displaced fracture of third metatarsal bone, unspecified foot, initial encounter for closed fracture; S92.343A Displaced fracture of fourth metatarsal bone, unspecified foot, initial encounter for closed fracture; Z79.891 Long term (current) use of opiate analgesic; E11.42 Type 2 diabetes mellitus with diabetic polyneuropathy; X58.XXXA Exposure to other specified factors, initial encounter; E11.65 Type 2 diabetes mellitus with hyperglycemia | CPT/HCPCS: 36415; 73630; 83036 ==

== ENCOUNTER → 2023-12-31 09:00 | Outpatient (BNVA) | payer MEDICARE, MEDICAID, SELFPAY | PROVIDERS: PCP Family Medicine; Visit Provider Internal Medicine | DX: E11.65 Type 2 diabetes mellitus with hyperglycemia; E03.9 Hypothyroidism, unspecified; E11.40 Type 2 diabetes mellitus with diabetic neuropathy, unspecified; E78.1 Pure hyperglyceridemia; K76.0 Fatty (change of) liver, not elsewhere classified; E11.9 Type 2 diabetes mellitus without complications; E78.5 Hyperlipidemia, unspecified; Z79.4 Long term (current) use of insulin; Z79.890 Hormone replacement therapy | CPT/HCPCS: 99214 ==

== ENCOUNTER → 2024-01-26 10:50 | Outpatient (BNVA) | payer MEDICARE, MEDICAID, SELFPAY | PROVIDERS: PCP Family Medicine; Visit Provider Internal Medicine Cardiovascular Disease | DX: I49.8 Other specified cardiac arrhythmias (principal); R07.9 Chest pain, unspecified | CPT/HCPCS: 93005; 99214 ==

== ENCOUNTER → 2024-02-03 15:29 | Outpatient (BNVA) | payer MEDICARE, MEDICAID, SELFPAY | PROVIDERS: PCP Family Medicine; Visit Provider Podiatrist Foot & Ankle Surgery | DX: M79.671 Pain in right foot; E11.42 Type 2 diabetes mellitus with diabetic polyneuropathy; M19.071 Primary osteoarthritis, right ankle and foot; S92.321K Displaced fracture of second metatarsal bone, right foot, subsequent encounter for fracture with nonunion; S92.331K Displaced fracture of third metatarsal bone, right foot, subsequent encounter for fracture with nonunion; S92.341K Displaced fracture of fourth metatarsal bone, right foot, subsequent encounter for fracture with nonunion; X58.XXXD Exposure to other specified factors, subsequent encounter | CPT/HCPCS: 73630; 99213 ==

== ENCOUNTER 2024-02-08 12:27 | Outpatient (CLI) | payer MEDICARE, OTHER, MEDICAID, SELFPAY ==
--- NOTE | 2024-02-08 12:30 | CT_ITS ---
WS: [id number] CT ABDOMEN WITHOUT CONTRAST HISTORY: AAA f/u Contiguous single phase 5 mm axial imaging performed to the abdomen. Oral contrast has not been provi ded. Coronal and sagittal reformats are submitted. All CT scans at [facility] use at least on e of these dose optimization techniques: automated exposure control; mA and/or kV adjustment per carol ent size (includes targeted exams where dose is matched to clinical indication); or iterative reconst ruction. IV CONTRAST: None Oral contrast: No DLP: 795.43 mGy.cm COMPARISON: 02/02/2023 Lower thorax: Lung bases are clear. Heart is mildly enlarged. New small pericardial effusion. Small h iatal hernia. Liver/biliary system: Liver is mildly enlarged and extends to the iliac crest. Noncontrast evaluation has been obtained. Gallbladder: Normal. No gallstones or wall thickening. No pericholecystic fluid. Pancreas: Normal size pancreas and pancreatic duct. No adjacent inflammation. Spleen: Normal size spleen. No mass or infarct. Lobulated contours of the spleen similar to the prior study. Adrenal glands: Normal RIGHT adrenal gland. Very mild LEFT adrenal gland thickening. No mass. Right kidney: No obstruction. There is a very tiny hypodensity from the superior pole which is presen t on the prior study with no increase in size. Left kidney: Hypodense mass in the superior pole measures 1.8 cm. No obstruction. Aorta: Extensive calcification within the abdominal aorta. Infrarenal abdominal aortic aneurysm is re identified. Maximum transverse diameter of 4.3 cm. Maximum anterior posterior diameter 4.3 cm. Aneury sm extends over a length of 6.1 cm. Heterogeneity within the central aorta is probably a mixture of n ormal lumen and thrombus. No contrast was given for this examination. Dense calcified plaque extends into the iliac arteries. Lymphadenopathy: None. Free fluid: None. GI tract: As visualized within the abdomen no obstruction. Abdominal wall: Negative. Visualized osseous structures: No destructive bone process. CT/CT abdomen wo con [id number] IMPRESSION: 1. Very slight increase in size of the previously described infrarenal abdomin al aortic aneurysm. Maximum diameter of 4.3 cm. Maximum diameter on the prior s tudy was 4.0 cm. This study was performed without IV contrast. 2. Extensive atherosclerotic plaque within the remaining aorta and iliac arter ies. 3. Moderately enlarged liver. 4. New small pericardial effusion.
[2024-02-08 13:15] LABS: Blood Urea Nitrogen 10 mg/dL (8-23); Glomerular Filtration Rate 38.1 mL/min (90-130)
--- NOTE | 2024-02-08 13:30 | CT_ITS ---
WS: [id number] CT chest w con* [id number] HISTORY: 1.23 LDCT showed nod; repeat overdue TECHNIQUE: Axial imaging performed through the thorax. Coronal and sagittal reformats are submitted. All CT scans at [facility] use at least one of these dose optimization techniques: automated exposure control; mA and/or kV adjustment per patient size (includes targeted exams where dose is mat ched to clinical indication); or iterative reconstruction. CONTRAST: Omnipaque 350; 100 mL IV. DLP: 795.43 mGy.cm COMPARISON: 02/03/2023, 04/23/2022 Lungs and central airway: Mild interstitial thickening is probably related to smoking history and poo r inspiration. No change in the 5 mm noncalcified nodule medial LEFT upper lobe. No additional or new nodules identified. No pneumonia. Pleura: Normal. No pleural effusion. Heart and pericardium: Heart is normal size. There is a new 1.5 cm pericardial effusion. Mediastinum and juan: No mediastinum or hilar adenopathy. Vessels: Moderate atherosclerotic plaque throughout the thoracic aorta. Mildly dilated pulmonary irving ry to 3.8 cm. Chest wall and lower neck: No soft tissue masses. Upper abdomen: Mild hepatic steatosis. No bile duct dilatation. LEFT adrenal gland thickening. LEFT r enal cyst superior pole. Osseous structures: No destructive process. CT/CT chest w con* [id number] IMPRESSION: 1. Stable 5 mm noncalcified nodule LEFT upper lobe. Stable nodule since 023. Return to low dose lung screening. 2. No pneumonia. 3. Moderate atherosclerotic plaque thoracic aorta. No aneurysm. 4. New small 1.5 cm pericardial effusion. 5. Mild pulmonary hypertension.
== END 2024-02-08 12:28 | disposition home or self-care (01) ==
LOC: RAD 12:28
PROVIDERS: Radiology Neuroradiology; PCP Family Medicine; Visit Provider Family Medicine
DX: I71.40 Abdominal aortic aneurysm, without rupture, unspecified (principal); R91.1 Solitary pulmonary nodule; I70.0 Atherosclerosis of aorta; I31.39 Other pericardial effusion (noninflammatory); N28.1 Cyst of kidney, acquired; R16.0 Hepatomegaly, not elsewhere classified
CPT/HCPCS: 71260; 74150; 82565; 84520; Q9967

== ENCOUNTER 2024-02-25 07:45 | Outpatient (CLI) | payer MEDICARE, OTHER, MEDICAID, SELFPAY ==
--- NOTE | 2024-02-25 07:45 | USCV_ITS ---
Alaina Cano Age: 63 Gender: F : 1960 Exam Date: 02/25/2024 07:57 Ordering Phys: Rip Lawton MD ([email or web address]) Technologist: Vasu Mcginnis [place] [facility] [place]: CVA BP: 132 / 62 HR: 69 Rhythm: Sinus Technical Quality: Adequate MEASUREMENTS (Male / Female) Normal Values 2D ECHO LV Diastolic Diameter PLAX 3.6 cm 4.2 - 5.9 / 3.9 - 5.3 cm IVS Diastolic Thickness 1.5 cm 0.6 - 1.0 / 0.6 - 0.9 cm IVS Systolic Thickness 1.9 cm LVPW Diastolic Thickness 1.9 cm 0.6 - 1.0 / 0.6 - 0.9 cm LVPW Systolic Thickness 2.1 cm LVOT Diameter 2.2 cm LV Ejection Fraction 2D Teich 64.3 % LV Ejection Fraction MOD 4C 58.9 % LV Ejection Fraction MOD 2C 65.1 % LV Ejection Fraction 2C AL 67.4 % LA Diameter 3.6 cm RA Systolic Volume 4C AL 39.1 ml RA Systolic Volume 4C MOD 39.4 ml LA Sys Volume AL 38.7 cm cubed LA Sys Volume Index AL 19.9 cm cubed/m squared Aorta at Sinotubular Diameter 2.9 cm IVC Diameter 1.5 cm M-MODE LA Ao Ratio MM 1.4 AV Cusp Separation MM 1.6 cm DOPPLER AV Peak Velocity 122.0 cm/s LVOT Peak Velocity 68.0 cm/s AV Area Cont Eq vti 2.1 cm squared AV Area Cont Eq pk 2.1 cm squared MV Peak Velocity 82.0 cm/s MV Area PHT 3.4 cm squared Mitral E to A Ratio 0.8 TV Peak Velocity 208.4 cm/s TR Peak Velocity 209.0 cm/s TR Peak Gradient 17.5 mmHg TR Mean Velocity 163.0 cm/s TR Mean Gradient 11.8 mmHg TR Velocity Time Integral 51.5 cm PV Peak Velocity 87.0 cm/s RV Ejection Time 0.3 s FINDINGS Left Ventricle Normal left ventricular size and systolic function, [id number]%.no regional wall motion abnormalities. Moderate left ventricular hypertrophy. Grade I/IV diastolic dysfunction (abnormal relaxation filling pattern), normal to mildly elevated filling pressures. Right Ventricle The right ventricle is normal in size and function. Right Atrium The right atrium is normal in size. Left Atrium The left atrium is normal in size. Mitral Valve No gross abnormalities noted Aortic Valve No gross abnormalities noted Tricuspid Valve Trace tricuspid valve regurgitation. Pulmonic Valve Trace pulmonary valve regurgitation. Pericardium Normal pericardium without effusion. Aorta Normal ascending aorta dimension. IVC Normal inferior vena cava. CONCLUSIONS Normal left ventricular size and systolic function, [id number]%.no regional wall motion abnormalities. Moderate left ventricular hypertrophy. Grade I/IV diastolic dysfunction (abnormal relaxation filling pattern), normal to mildly elevated filling pressures. Trace tricuspid valve regurgitation. Trace pulmonary valve regurgitation. Estimated pulmonary artery peak systolic pressure possibly within normal limit-around 20 mmHg No similar previous studies are available for comparison Dr Rip Lawton MD FAC (Electronically Signed) Final Date: 28 February 2024 08:38 S
[2024-02-25 09:12] LABS: Creatinine Urine, Random 44 mg/dL (28-217); Microalbumin Random Urine 8 ug/dL (0-20)
[2024-02-25 09:13] LABS: Microalbum Creatinine Ratio Ur 182 mg/dL (0-20)
[2024-02-25 09:16] LABS: Alanine Aminotransferase 19 U/L (0-33); Albumin Level 4.7 g/dL (3.5-5.2); Alkaline Phosphatase 113 U/L (35-105); Anion Gap 14.6 (5-19); Aspartate Amino Transferase 25 U/L (0-32); Blood Urea Nitrogen 13 mg/dL (8-23); Carbon Dioxide 27 mmol/L (22-29); Chloride 100 mmol/L (98-107); Chol HDL Ratio 9.12 mg/dL (0.0-4.40); Cholesterol 237 mg/dL (0-200); Globulin 3.4 g/dL (1.3-4.6); Glomerular Filtration Rate 45.5 mL/min (90-130); Glucose 151 mg/dL (65-115); HDL Cholesterol 26 mg/dL (60-100); Osmolality Calculated 289 mOsm/kg (285-295); Potassium 3.6 mmol/L (3.5-5.1); Sodium 138 mmol/L (136-145); Thyroid Stimulating Hormone 88.31 uIU/mL (0.27-4.20); Total Bilirubin 0.4 mg/dL (0.15-1.2); Total Protein 8.1 g/dL (6.6-8.7); Triglycerides 413 mg/dL (0-150)
[2024-02-25 09:31] LABS: Estmated Average Glucose 157; Hemoglobin A1C 7.1 % (4.0-6.0)
[2024-02-25 09:34] LABS: LDL Cholesterol Direct 144 mg/dL (0-100)
[2024-02-25 09:41] LABS: Free T4 Free Thyroxine 0.43 ng/dL (0.82-1.77)
== END 2024-02-25 07:48 | disposition home or self-care (01) ==
PROVIDERS: Absent Provider Internal Medicine; PCP Family Medicine; Visit Provider Internal Medicine Cardiovascular Disease
DX: I50.30 Unspecified diastolic (congestive) heart failure (principal); I51.7 Cardiomegaly; R06.09 Other forms of dyspnea; E11.9 Type 2 diabetes mellitus without complications; E11.65 Type 2 diabetes mellitus with hyperglycemia; E03.9 Hypothyroidism, unspecified; E78.1 Pure hyperglyceridemia; Z79.891 Long term (current) use of opiate analgesic
CPT/HCPCS: 36415; 80053; 80061; 82044; 83036; 83721; 84439; 84443; 93306

== ENCOUNTER → 2024-02-29 11:57 | Outpatient (BNVA) | payer MEDICARE, OTHER, MEDICAID, SELFPAY | PROVIDERS: PCP Family Medicine; Visit Provider Internal Medicine | DX: E78.2 Mixed hyperlipidemia (principal); E03.9 Hypothyroidism, unspecified; E11.65 Type 2 diabetes mellitus with hyperglycemia; E11.40 Type 2 diabetes mellitus with diabetic neuropathy, unspecified; E78.1 Pure hyperglyceridemia; K76.0 Fatty (change of) liver, not elsewhere classified; Z79.4 Long term (current) use of insulin; Z79.890 Hormone replacement therapy | CPT/HCPCS: 99214 ==

== ENCOUNTER → 2024-03-09 11:34 | Outpatient (BNVA) | payer MEDICARE, MEDICAID, SELFPAY | PROVIDERS: PCP Family Medicine; Visit Provider Podiatrist Foot & Ankle Surgery | DX: M79.671 Pain in right foot; E11.42 Type 2 diabetes mellitus with diabetic polyneuropathy; M19.071 Primary osteoarthritis, right ankle and foot; S92.321K Displaced fracture of second metatarsal bone, right foot, subsequent encounter for fracture with nonunion; S92.331K Displaced fracture of third metatarsal bone, right foot, subsequent encounter for fracture with nonunion; S92.341K Displaced fracture of fourth metatarsal bone, right foot, subsequent encounter for fracture with nonunion; X58.XXXD Exposure to other specified factors, subsequent encounter; Z79.4 Long term (current) use of insulin | CPT/HCPCS: 73630; 99213 ==

== ENCOUNTER → 2024-04-18 14:59 | Outpatient (BNVA) | payer MEDICARE, MEDICAID, SELFPAY ==
[2024-03-23 10:30] VITALS: BP 99/58; BMI 31.7
== END ==
PROVIDERS: PCP Family Medicine; Visit Provider Podiatrist Foot & Ankle Surgery
DX: E11.42 Type 2 diabetes mellitus with diabetic polyneuropathy (principal); L60.3 Nail dystrophy; L84 Corns and callosities; M19.071 Primary osteoarthritis, right ankle and foot; S92.324K Nondisplaced fracture of second metatarsal bone, right foot, subsequent encounter for fracture with nonunion; S92.334K Nondisplaced fracture of third metatarsal bone, right foot, subsequent encounter for fracture with nonunion; S92.344 Nondisplaced fracture of fourth metatarsal bone, right foot; X58.XXXD Exposure to other specified factors, subsequent encounter; M21.611 Bunion of right foot; M21.612 Bunion of left foot; M21.621 Bunionette of right foot; M21.622 Bunionette of left foot; M20.41 Other hammer toe(s) (acquired), right foot; M20.42 Other hammer toe(s) (acquired), left foot; Z79.4 Long term (current) use of insulin
CPT/HCPCS: 11056; 11721; 73630; 99213

== ENCOUNTER 2024-05-03 20:00 | Outpatient (CLI) | payer MEDICARE, SELFPAY ==
[2024-03-23 10:30] VITALS: BP 99/58; BMI 31.7
== END 2024-05-03 20:01 | disposition home or self-care (01) ==
LOC: SLEEP 23:52
PROVIDERS: PCP Family Medicine; Visit Provider Family Medicine
DX: G47.33 Obstructive sleep apnea (adult) (pediatric) (principal); G47.36 Sleep related hypoventilation in conditions classified elsewhere
CPT/HCPCS: 95810

== ENCOUNTER → 2024-06-20 09:38 | Outpatient (BNVA) | payer MEDICARE, MEDICAID, SELFPAY ==
[2024-06-20 10:02] VITALS: BP 99/58; BMI 31.7
== END ==
PROVIDERS: PCP Family Medicine; Visit Provider Podiatrist Foot & Ankle Surgery
DX: S92.323A Displaced fracture of second metatarsal bone, unspecified foot, initial encounter for closed fracture (principal); S92.343A Displaced fracture of fourth metatarsal bone, unspecified foot, initial encounter for closed fracture; S92.333A Displaced fracture of third metatarsal bone, unspecified foot, initial encounter for closed fracture; E11.42 Type 2 diabetes mellitus with diabetic polyneuropathy; M79.671 Pain in right foot; S92.324K Nondisplaced fracture of second metatarsal bone, right foot, subsequent encounter for fracture with nonunion; S92.334K Nondisplaced fracture of third metatarsal bone, right foot, subsequent encounter for fracture with nonunion; S92.344 Nondisplaced fracture of fourth metatarsal bone, right foot; S92.901K Unspecified fracture of right foot, subsequent encounter for fracture with nonunion; X58.XXXD Exposure to other specified factors, subsequent encounter; Z79.4 Long term (current) use of insulin
CPT/HCPCS: 73630; 99213

== ENCOUNTER 2024-07-17 16:28 | Outpatient (CLI) | payer MEDICARE, MEDICAID, SELFPAY ==
[2024-06-20 10:02] VITALS: BP 99/58; BMI 31.7
[2024-07-17 17:24] LABS: Creatinine Urine, Random 127 mg/dL (28-217); Microalbum Creatinine Ratio Ur 39 mg/dL (0-20); Microalbumin Random Urine 5 ug/dL (0-20)
[2024-07-17 17:36] LABS: Alanine Aminotransferase 13 U/L (0-33); Albumin Level 4.1 g/dL (3.5-5.2); Alkaline Phosphatase 108 U/L (35-105); Anion Gap 17.6 (5-19); Aspartate Amino Transferase 13 U/L (0-32); Blood Urea Nitrogen 17 mg/dL (8-23); Calcium 9.3 mg/dL (8.5-10.5); Carbon Dioxide 22 mmol/L (22-29); Chloride 100 mmol/L (98-107); Globulin 3.5 g/dL (1.3-4.6); Glomerular Filtration Rate 63.4 mL/min (90-130); Glucose 285 mg/dL (65-115); Osmolality Calculated 292 mOsm/kg (285-295); Potassium 4.6 mmol/L (3.5-5.1); Sodium 135 mmol/L (136-145); Thyroid Stimulating Hormone 3.34 uIU/mL (0.27-4.20); Total Bilirubin 0.2 mg/dL (0.15-1.2); Total Protein 7.6 g/dL (6.6-8.7)
[2024-07-17 19:49] LABS: Estmated Average Glucose 295; Hemoglobin A1C 11.9 % (4.0-6.0)
== END 2024-07-17 16:29 | disposition home or self-care (01) ==
LOC: LAB 16:35
PROVIDERS: PCP Family Medicine; Visit Provider Internal Medicine
DX: E11.9 Type 2 diabetes mellitus without complications (principal); E03.9 Hypothyroidism, unspecified
CPT/HCPCS: 36415; 80053; 82044; 83036; 84439; 84443

== ENCOUNTER → 2024-07-19 09:17 | Outpatient (BNVA) | payer MEDICARE, MEDICAID, SELFPAY ==
[2024-07-20 00:05] VITALS: BP 100/62; BMI 31.6
== END ==
PROVIDERS: PCP Family Medicine; Visit Provider Internal Medicine
DX: D35.2 Benign neoplasm of pituitary gland (principal); K76.0 Fatty (change of) liver, not elsewhere classified; E03.9 Hypothyroidism, unspecified; E78.2 Mixed hyperlipidemia; E11.65 Type 2 diabetes mellitus with hyperglycemia; E11.40 Type 2 diabetes mellitus with diabetic neuropathy, unspecified; E78.1 Pure hyperglyceridemia
CPT/HCPCS: 36415; 80061; 82533; 83721; 84146; 84305

== ENCOUNTER 2024-08-16 14:02 | Outpatient (CLI) | payer MEDICARE, MEDICAID, SELFPAY ==
[2024-07-20 00:05] VITALS: BP 100/62; BMI 31.6
== END 2024-08-16 14:03 | disposition home or self-care (01) ==
LOC: LAB 09-19 14:08
PROVIDERS: PCP Family Medicine; Visit Provider Psychiatry & Neurology Neurology
DX: Z53.9 Procedure and treatment not carried out, unspecified reason (principal)
CPT/HCPCS: 36415; 82233; 82234; 82542; 83520

== ENCOUNTER 2024-12-25 08:00 | Outpatient (CLI) | payer MEDICARE, MEDICAID, SELFPAY ==
[2024-07-20 00:05] VITALS: BP 100/62; BMI 31.6
[2024-12-25 09:27] LABS: Creatinine Urine, Random 13 mg/dL (28-217)
[2024-12-25 09:28] LABS: Estmated Average Glucose 341; Hemoglobin A1C 13.5 % (4.0-6.0)
[2024-12-25 09:35] LABS: Alanine Aminotransferase 10 U/L (0-33); Albumin Level 4.1 g/dL (3.5-5.2); Alkaline Phosphatase 123 U/L (35-105); Anion Gap 18.9 (5-19); Aspartate Amino Transferase 12 U/L (0-32); Blood Urea Nitrogen 18 mg/dL (8-23); Calcium 8.9 mg/dL (8.5-10.5); Carbon Dioxide 23 mmol/L (22-29); Chloride 102 mmol/L (98-107); Cholesterol 178 mg/dL (0-200); Free T4 Free Thyroxine 1.43 ng/dL (0.82-1.77); Globulin 3.5 g/dL (1.3-4.6); Glucose 454 mg/dL (65-115); HDL Cholesterol 20 mg/dL (60-100); Osmolality Calculated 310 mOsm/kg (285-295); Potassium 4.9 mmol/L (3.5-5.1); Sodium 139 mmol/L (136-145); Thyroid Stimulating Hormone 0.62 uIU/mL (0.27-4.20); Total Protein 7.6 g/dL (6.6-8.7); Triglycerides 687 mg/dL (0-150)
[2024-12-25 09:36] LABS: Microalbum Creatinine Ratio Ur 77 mg/dL (0-20)
== END 2024-12-25 08:01 | disposition home or self-care (01) ==
LOC: LAB 08:04
PROVIDERS: PCP Family Medicine; Visit Provider Internal Medicine
DX: E11.9 Type 2 diabetes mellitus without complications (principal)
CPT/HCPCS: 36415; 80053; 80061; 82044; 83036; 83721; 84439; 84443

== ENCOUNTER → 2024-12-26 10:45 | Outpatient (BNVA) | payer MEDICARE, MEDICAID, SELFPAY ==
[2024-07-20 00:05] VITALS: BP 100/62; BMI 31.6
== END ==
PROVIDERS: PCP Family Medicine; Visit Provider Internal Medicine
DX: E11.65 Type 2 diabetes mellitus with hyperglycemia (principal); E03.9 Hypothyroidism, unspecified; E11.40 Type 2 diabetes mellitus with diabetic neuropathy, unspecified; E78.1 Pure hyperglyceridemia; K76.0 Fatty (change of) liver, not elsewhere classified; E78.2 Mixed hyperlipidemia; D35.2 Benign neoplasm of pituitary gland
CPT/HCPCS: 99214